=== PATIENT | female | born 1935 | race African-American/Black ===

== ENCOUNTER → 2018-04-01 | Outpatient (CLI) | payer MEDICARE, OTHER | END | disposition home or self-care (01) | LOC: CT 13:22 | DX: K04.99 Other diseases of pulp and periapical tissues (principal); I12.9 Hypertensive chronic kidney disease with stage 1 through stage 4 chronic kidney disease, or unspecified chronic kidney disease; E11.22 Type 2 diabetes mellitus with diabetic chronic kidney disease; N18.3 Chronic kidney disease, stage 3 (moderate); E03.9 Hypothyroidism, unspecified; E78.5 Hyperlipidemia, unspecified; G43.909 Migraine, unspecified, not intractable, without status migrainosus; Z90.49 Acquired absence of other specified parts of digestive tract; Z90.710 Acquired absence of both cervix and uterus; Z68.29 Body mass index [BMI] 29.0-29.9, adult | CPT/HCPCS: 70486 ==

== ENCOUNTER 2018-04-22 12:32 | Emergency (ER) | payer MEDICARE, OTHER ==
[~2018-04-22] VITALS: Ht 167.6 cm; Wt 81.6 kg
[~2018-04-22 12:32] MED LIST: LEVO88TA4 PO; LOSA1TAB19 PO; OMEP40CA5 PO
[2018-04-22 12:50] VITALS: BP 157/74
--- NOTE | 2018-04-22 13:11 | PHYS DOC ---
Past Medical History Past Medical History: Hypertension, Migraines, Other Additional Past Medical Histor: Vertigo Past Surgical History: Cholecystectomy, Hysterectomy Alcohol Use: None Drug Use: None Adult General Chief Complaint Chief Complaint: FINGER INJURY HPI HPI 82 y/o female presents to ER for c/o fall yesterday and woke today with rt middle finger swelling into hand. Patient reports she slipped in the bathtub denies striking her head or having any head, neck, or back pain. Patient reports only injury to be to left middle finger. Patient reports she is right hand dominant. Patient denies any pain at this time. Patient reports she is able to bend left middle finger but due to swelling has slight decrease in range of motion. She reports she remembers falling and denies any LOC. Review of Systems Review of Systems Constitutional: Denies fever or chills [] Eyes: Denies change in visual acuity, redness, or eye pain [] HENT: Denies head pain Respiratory: Denies cough or shortness of breath [] Cardiovascular: Denies CP GI: Denies abdominal pain, nausea, vomiting, bloody stools or diarrhea [] : Denies dysuria or hematuria. Denies incontinence Musculoskeletal: Denies back/neck pain. Reports lt middle finger swelling and decreased ROM- swelling top of hand- denies any pain in lt hand/fingers Integument: Denies abrasion/laceration. Reports swelling lt middle finger/hand Neurologic: Denies headache, focal weakness or sensory changes [] All other systems were reviewed and found to be within normal limits, except as documented in this note. Allergies Allergies Allergies Coded Allergies Type Severity Reaction Last Updated Verified simvastatin Allergy Intermediate 02/20/18 Yes Physical Exam Physical Exam Constitutional: Well developed, well nourished, no acute distress, non-toxic appearance. [] HENT: Normocephalic, atraumatic, bilateral ears normal, oropharynx moist, no oral exudates, nose normal. [] Eyes: 3mm PERRLA, no nystagmus, conjunctiva normal, no discharge. [] Neck: Normal range of motion, no tenderness, supple, no midline cervical tenderness on palp- no deformity Cardiovascular:Heart rate regular rhythm Lungs & Thorax: Resp. equal/nonlabored. No chest wall tenderness Abdomen: soft/nondistended, no tenderness Skin: Warm, dry, no erythema. Back: No tenderness- no midline spinal tenderness on palp. with no c/o pain with ROM, no CVA tenderness. [] Extremities: Pelvis stable and nontender. No tenderness, no cyanosis, no clubbing. Swelling dorsal surface lt hand at base of lt middle finger with swelling extending to distal end of finger- no pain with ROM- ROM is slightly decreased with swelling. Cap refill brisk all fingers lt hand Neurologic: Alert and oriented X 3, normal motor function, normal sensory function, no focal deficits noted. [] Psychologic: Affect normal, judgement normal, mood normal. [] Current Patient Data Vital Signs Vital Signs Date Time Temp Pulse Resp B/P (MAP) Pulse Ox O2 Delivery O2 Flow Rate FiO2 04/22/18 12:50 98.0 81 18 157/74 (101) 96 Room Air 98.0 EKG EKG [] Radiology/Procedures Radiology/Procedures HAND LEFT 3V History: Left middle finger/dorsal surface swelling, injury yesterday Comparison: None. Findings: 3 views of the left hand are submitted. There is subtle fracture involving the distal aspect of the third middle phalanx, no significant displacement. Impression: 1. There is subtle nondisplaced fracture involving the distal aspect of the third middle phalanx. Electronically signed by: Sonal Beavers MD (04/22/2018 1:39 PM) [id number] DICTATED and SIGNED BY: SONAL BEAVERS MD DATE: 04/22/18 1337 Course & Med Decision Making Course & Med Decision Making Pertinent Imaging studies reviewed. (See chart for details) 1400: Discussed xray results with pt with nondisplaced fx distal lt middle finger. On re-exam patient remains neuro and vascular intact in left hand and has had no increase in swelling. Discussed plans for aluminum splint to left middle finger and will provide orthopedic referral information on discharge paperwork. Patient continues to deny any pain in left hand or fingers. Patient instructed to use ibuprofen and/or Tylenol for pain control as needed. Discussed use of ice to affected area every 3-4 hours for 20-30 minutes at a time. Patient provided on signs and symptoms to return to ER for an discharge instructions were discussed. Patient agreeable with discharge plan. Dragon Disclaimer Dragon Disclaimer This electronic medical record was generated, in whole or in part, using a voice recognition dictation system. Departure Departure Impression: Primary Impression: Nondisplaced fracture of phalanx of finger of left hand Disposition: 01 HOME, SELF-CARE Condition: STABLE Referrals: NO PCP (PCP) ANAYELI PHAN MD orthopedic doctor for follow-up Patient Instructions: Finger Fracture Additional Instructions: Wear the aluminum splint to left middle finger- follow up with orthopedic doctor for re-evaluation. Tylenol and/or ibuprofen as needed for pain control. Ice pack every 3-4 hours to left hand for 20-30 minutes at a time for swelling. BETO MAGANA APRN Apr 22, 2018 13:11
--- NOTE | 2018-04-22 13:42 | RAD ---
HAND LEFT 3V History: Left middle finger/dorsal surface swelling, injury yesterday Comparison: None. Findings: 3 views of the left hand are submitted. There is subtle fracture involving the distal aspect of the third middle phalanx, no significant displacement. Impression: 1. There is subtle nondisplaced fracture involving the distal aspect of the third middle phalanx. Electronically signed by: Jono Kulkarni MD (04/22/2018 1:39 PM) [id number]
== END 2018-04-22 14:49 | disposition home or self-care (01) ==
LOC: ER 12:32
DX: S62.653A Nondisplaced fracture of middle phalanx of left middle finger, initial encounter for closed fracture (principal); I10 Essential (primary) hypertension; G43.909 Migraine, unspecified, not intractable, without status migrainosus; Z90.710 Acquired absence of both cervix and uterus; Z90.49 Acquired absence of other specified parts of digestive tract; Z88.8 Allergy status to other drugs, medicaments and biological substances; W01.0XXA Fall on same level from slipping, tripping and stumbling without subsequent striking against object, initial encounter; Y93.89 Activity, other specified; Y92.89 Other specified places as the place of occurrence of the external cause; Y99.8 Other external cause status
CPT/HCPCS: 29130; 73130; 99284

== ENCOUNTER 2020-04-29 21:56 | Inpatient (IN) | payer OTHER ==
[~2020-04-29] VITALS: Ht 172.7 cm; Wt 77.1 kg
[~2020-04-29 21:56] MED LIST changes: +OMEP40CA45 PO; -OMEP40CA5 PO
--- NOTE | 2020-04-29 22:25 | PHYS DOC ---
Past Medical History Past Medical History: Hypertension, Migraines Additional Past Medical Histor: Vertigo Past Surgical History: Cholecystectomy, Hysterectomy Smoking Status: Never Smoker Alcohol Use: None Drug Use: None General Adult EDM: Chief Complaint: DIZZY/LIGHT HEADED HPI: HPI: The history was obtained from the patient. Patient is a 84-year-old female with PMH hypertension, high cholesterol, vertigo who presents with a chief complaint of vertigo. Patient states she had sudden onset dizziness yesterday afternoon around 2 PM. She states approximate hour prior to arrival she developed nausea and vomiting. States that her stress ambulated moves her head the symptoms are worse. She denies any weakness in one extremity compared to the other. She states this has occurred several years ago. She denies any history of stroke. Denies any known history of coronary artery disease or peripheral vascular disease. Does note some ringing in her right ear. Denies taking aspirin daily. Denies any confusion. Denies falls or head trauma. Denies neck pain. Does note a mild headache. Denies fevers. Denies any acute vision changes. No other complaints. Review of Systems: Review of Systems: Constitutional: Denies fever or chills. [] Eyes: Denies change in visual acuity. [] HENT: Denies nasal congestion or sore throat. [] Respiratory: Denies cough or shortness of breath. [] Cardiovascular: Denies chest pain or edema. [] GI: Positive for vomiting : Denies dysuria. [] Musculoskeletal: Denies back pain or joint pain. [] Integument: Denies rash. [] Neurologic: Positive for dizziness Endocrine: Denies polyuria or polydipsia. [] Lymphatic: Denies swollen glands. [] Psychiatric: Denies depression or anxiety. [] Heart Score: Risk Factors: Risk Factors: DM, Current or recent (<one month) smoker, HTN, HLP, family history of CAD, obesity. Risk Scores: Score 0 - 3: 2.5% MACE over next 6 weeks - Discharge Home Score 4 - 6: 20.3% MACE over next 6 weeks - Admit for Clinical Observation Score 7 - 10: 72.7% MACE over next 6 weeks - Early Invasive Strategies Current Medications: Current Medications Medications (Trade) Dose Ordered Sig/Nolan Start Time Stop Time Status Last Admin Dose Admin Meclizine HCl (Antivert) 25 mg 1X ONCE 04/29/20 23:00 04/29/20 23:01 Sodium Chloride 1,000 ml @ 1,000 mls/hr 1X ONCE 04/29/20 22:30 04/29/20 23:29 Allergies: Allergies: Allergies Coded Allergies Type Severity Reaction Last Updated Verified simvastatin Allergy Intermediate 02/20/18 Yes Physical Exam: PE: Constitutional: Well developed, well nourished, no acute distress, non-toxic appearance. [] HENT: Normocephalic, atraumatic, bilateral external ears normal, oropharynx moist, no oral exudates, nose normal. [] Eyes: PERRLA, EOMI, conjunctiva normal, no discharge. [] Neck: Normal range of motion, no tenderness, supple, no stridor. [] Cardiovascular:Heart rate regular rhythm, no murmur [] Lungs & Thorax: Bilateral breath sounds clear to auscultation [] Abdomen: soft, no tenderness, no masses, no pulsatile masses. [] Skin: Warm, dry, no erythema, no rash. [] Back: No tenderness, no CVA tenderness. [] Extremities: No tenderness, no cyanosis, no clubbing, ROM intact, no edema. [] Neurologic: Alert with intact cognitive function. No aphasia, dysarthria, or neglect. GCS 15. Pupils 3 mm briskly reactive b/l. No APD present. Cranial nerves 2-12 grossly intact; no facial asymmetry present, tongue midline, shoulder shrugging strength intact. Strength 5/5 and symmetric throughout. Light touch sensation intact throughout. Cerebellar testing appropriate without evidence of dysdiadochokinesia. DTR's 2+ in all 4 extremities. Negative pronator drift bilaterally. Gait unsteady. Non-fatigable nystagmus to the left. Positive hints exam Psychologic: Affect normal, judgement normal, mood normal. [] Current Patient Data: Labs: Laboratory Tests Test 04/29/20 22:25 04/29/20 22:44 Glucose (Fingerstick) 129 mg/dL White Blood Count 6.9 x10^3/uL Red Blood Count 4.60 x10^6/uL Hemoglobin 14.5 g/dL Hematocrit 42.2 % Mean Corpuscular Volume 92 fL Mean Corpuscular Hemoglobin 32 pg Mean Corpuscular Hemoglobin Concent 34 g/dL Red Cell Distribution Width 13.1 % Platelet Count 211 x10^3/uL Neutrophils (%) (Auto) 87 % Lymphocytes (%) (Auto) 10 % Monocytes (%) (Auto) 3 % Eosinophils (%) (Auto) 0 % Basophils (%) (Auto) 0 % Neutrophils # (Auto) 6.0 x10^3/uL Lymphocytes # (Auto) 0.7 x10^3/uL Monocytes # (Auto) 0.2 x10^3/uL Eosinophils # (Auto) 0.0 x10^3/uL Basophils # (Auto) 0.0 x10^3/uL Segmented Neutrophils % 83 % Lymphocytes % 14 % Monocytes % 3 % Platelet Estimate Adequate Sodium Level 133 mmol/L Potassium Level 3.4 mmol/L Chloride Level 97 mmol/L Carbon Dioxide Level 25 mmol/L Anion Gap 11 Blood Urea Nitrogen 13 mg/dL Creatinine 1.1 mg/dL Estimated GFR (Cockcroft-Gault) 57.4 BUN/Creatinine Ratio 12 Glucose Level 134 mg/dL Calcium Level 10.2 mg/dL Magnesium Level 2.0 mg/dL Total Bilirubin 1.0 mg/dL Aspartate Amino Transf (AST/SGOT) 18 U/L Alanine Aminotransferase (ALT/SGPT) 22 U/L Alkaline Phosphatase 83 U/L Troponin I Quantitative < 0.017 ng/mL Total Protein 8.8 g/dL Albumin 4.4 g/dL Albumin/Globulin Ratio 1.0 Lipase 40 U/L Salicylates Level < 2.8 mg/dL Salicylate Last Dose Date Unk Salicylate Last Dose Time Unk Current Medications Medications (Trade) Dose Ordered Sig/Nolan Route PRN Reason Start Time Stop Time Status Last Admin Dose Admin Sodium Chloride 1,000 ml @ 1,000 mls/hr 1X ONCE IV 04/29/20 22:30 04/29/20 23:29 04/29/20 22:43 Meclizine HCl (Antivert) 25 mg 1X ONCE PO 04/29/20 23:00 04/29/20 23:01 DC 04/29/20 22:42 Vital Signs: Vital Signs Date Time Temp Pulse Resp B/P (MAP) Pulse Ox O2 Delivery O2 Flow Rate FiO2 04/29/20 22:00 97.7 86 18 179/97 (124) 98 Room Air 97.7 Vital Signs Date Time Temp Pulse Resp B/P (MAP) Pulse Ox O2 Delivery O2 Flow Rate FiO2 04/30/20 00:08 82 98 04/29/20 22:00 97.7 18 179/97 (124) Room Air 97.7 EKG: EKG: EKG consistent with normal sinus rhythm. Ventricular rate of 87 bpm. Ranson normal. Inverted T waves noted in lead III. No acute ischemic changes appreciated. [] Radiology/Procedures: Radiology/Procedures: [facility] [address] [place] [address] IMAGING REPORT Signed PATIENT: HARDEEP CAPELLAN ACCOUNT: [id number] : 1935 LOCATION: ER AGE: 84 SEX: F EXAM STATUS: REG ER ORD. PHYSICIAN: CHARLY SORTO DO REASON: dizziness with non fatiguing nystagmus OMNI 300, 60 ML IV PROCEDURE: CT ANGIOGRAPHY HEAD AND NECK INDICATION: Reason: dizziness with non fatiguing nystagmus OMNI 300, 60 ML IV / Spl. Instructions: / History: COMPARISON: CT head same day TECHNIQUE: Axial CT images obtained through the head and neck arterial vasculature with intravenous contrast. 3D images were processed per protocol. Estimates of carotid stenosis based on criteria that correlates with NASCET. One or more of the following individualized dose reduction techniques were utilized for this examination: 1. Automated exposure control; 2. Adjustment of the mA and/or kV according to patient size; 3. Use of iterative reconstruction technique. FINDINGS: Neck Angio: The vertebral arteries are patent. The common carotid arteries and internal carotid arteries are patent. Multifocal plaque throughout the vasculature. This includes at the origin of the right vertebral artery Brain Angio: Proximal anterior cerebral arteries are patent. Proximal posterior cerebral arteries are patent. Proximal middle cerebral arteries are patent. Basilar artery is patent. Multifocal plaque Other Findings: Scattered regions of low density within the white matter. Diffuse prominence of ventricles and sulci which can be seen with age-related volume loss. Degenerative changes the spine with multilevel central canal and neural foraminal stenosis. Enlarged thyroid. Prominent lymph nodes in partially visualized mediastinum. Cystic changes at lung apices. IMPRESSION: * Vertebral, internal and common carotid arteries are patent within the neck. Multifocal plaque is seen. * Proximal middle, anterior and posterior cerebral arteries are patent. If there is high concern for stroke MRI could better assess for a more peripheral region of ischemia that would not be well seen on CT. * Regions of low density within the white matter. Nonspecific but can be from small vessel ischemic disease. Electronically signed by: Lavon Cooper MD (04/30/2020 12:27 AM) [id number] DICTATED and SIGNED BY: LAVON COOPER MD DATE: 04/30/20 0027 [][facility] [address] [place] [address] IMAGING REPORT Signed PATIENT: HARDEEP CAPELLAN ACCOUNT: [id number] : 1935 LOCATION: ER AGE: 84 SEX: F EXAM STATUS: REG ER ORD. PHYSICIAN: CHARLY SORTO DO REASON: dizziness with non fatiguing nystagmus PROCEDURE: CT HEAD WO CONTRAST Exam: CT head INDICATION: Dizziness with nystagmus TECHNIQUE: Sequential axial images through the head were obtained without the administration of IV contrast. Comparisons: None FINDINGS: No focal parenchymal lesion or hemorrhage is identified. There is no midline shift or sulcal effacement. Patchy hypodensity in the periventricular white matter. No acute vascular territory infarction is identified. Andrews-white distinction is preserved. The ventricular system is within normal limits without compression hydrocephalus. The basal cisterns are well maintained. The visualized portions of the paranasal sinuses and mastoid air cells are well-pneumatized. No acute fractures. IMPRESSION: Small vessel ischemic change, technically age indeterminate without prior imaging. Exposure: One or more of the following in the visualized dose reduction techniques were utilized for this examination: 1. Automated exposure control 2. Adjustment of the MA and/or KV according to patient size Use of iterative of reconstructive technique Electronically signed by: Jalil Price MD (04/29/2020 11:14 PM) [id number] DICTATED and SIGNED BY: JALIL PRICE MD DATE: 04/29/20 2314 Course & Med Decision Making: Course & Med Decision Making Pertinent Labs and Imaging studies reviewed. (See chart for details) Patient is a 84-year-old female who presents with chief complaint of acute onset vertiginous symptoms with vomiting. No focal neurologic deficits appreciated on initial examination however the patient does have non-fatigable nystagmus to the left. Given her symptoms began over 24 hours ago and she is not a candidate for large vessel clot retrieval stroke alert was not called. Furthermore she is outside the TPA window. However CT noncontrast as well as CT Paz of the head neck was obtained for potential of posterior involvement. These were grossly unremarkable. Labs been grossly unremarkable. Her symptoms were treated with meclizine and Zofran. She still remains some what symptomatic especially with movement and is unable to ambulate. Although this may be peripheral in nature I do feel the patient would benefit from hospitalization and further work-up given her abnormal nystagmus findings and potential for posterior involvement. Patient agreeable to hospitalization. Osman Disclaimer: Osman Disclaimer: This electronic medical record was generated, in whole or in part, using a voice recognition dictation system. Departure Departure Impression: Primary Impression: Vertigo Additional Impressions: Nausea & vomiting Qualified Codes: R11.2 - Nausea with vomiting, unspecified Non fatigable positional nystagmus Disposition: ADMITTED INPATIENT Condition: STABLE Referrals: Beth KELLER MD (PCP) Justicifation of Admission Dx: Justifications for Admission: Justification of Admission Dx: Yes Comments: intractable vertigo, non fatigable nystagmus, N/V. CVA r/o CHARLY SORTO DO Apr 29, 2020 22:25
[2020-04-29] MEDS ORDERED: IV NORMAL SALINE 1000ML BAG 1,000 ML IV ONE (22:30)
[2020-04-29] MEDS ORDERED: MECLIZINE HCL 12.5 MG TABLET. PO ONE (23:00)
[2020-04-29 23:08] LABS: SALIC < 2.8 mg/dL (2.8-20.0)
[2020-04-29 23:09] LABS: CALCIUM 10.2 mg/dL (8.5-10.1); CREATININE 1.1 mg/dL (0.6-1.0); GFR 57.4; POTASSIUM 3.4 mmol/L (3.5-5.1)
[2020-04-29 23:10] LABS: BASO % 0 % (0-3); EOS % 0 % (0-3); HEMATOCRIT 42.2 % (36.0-47.0); HEMOGLOBIN 14.5 g/dL (12.0-15.5); LYMPH # 0.7 x10^3/uL (1.0-4.8); LYMPH % 10 % (24-48); MEAN CORPUSCULAR HEMOGLOBIN 32 pg (25-35); MEAN CORPUSCULAR HGB CONC 34 g/dL (31-37); MEAN CORPUSCULAR VOLUME 92 fL (79-100); MONO # 0.2 x10^3/uL (0.0-1.1); MONO % 3 % (0-9); NEUT % 87 % (31-73); PLATELET COUNT 211 x10^3/uL (140-400); RED CELL DISTRIBUTION WIDTH 13.1 % (11.5-14.5); WHITE BLOOD COUNT 6.9 x10^3/uL (4.0-11.0)
[2020-04-29 23:15] LABS: ALBUMIN 4.4 g/dL (3.4-5.0); TOTAL PROTEIN 8.8 g/dL (6.4-8.2)
--- NOTE | 2020-04-29 23:17 | RAD ---
Exam: CT head INDICATION: Dizziness with nystagmus TECHNIQUE: Sequential axial images through the head were obtained without the administration of IV contrast. Comparisons: None FINDINGS: No focal parenchymal lesion or hemorrhage is identified. There is no midline shift or sulcal effacement. Patchy hypodensity in the periventricular white matter. No acute vascular territory infarction is identified. Andrews-white distinction is preserved. The ventricular system is within normal limits without compression hydrocephalus. The basal cisterns are well maintained. The visualized portions of the paranasal sinuses and mastoid air cells are well-pneumatized. No acute fractures. IMPRESSION: Small vessel ischemic change, technically age indeterminate without prior imaging. Exposure: One or more of the following in the visualized dose reduction techniques were utilized for this examination: 1. Automated exposure control 2. Adjustment of the MA and/or KV according to patient size Use of iterative of reconstructive technique Electronically signed by: Jalil Orozco MD (04/29/2020 11:14 PM) [id number]
[2020-04-29 23:23] LABS: % LYMPHS 14 % (24-48); % MONOS 3 % (0-10); % SEGS 83 % (35-66); PLT ESTIMATE ADEQUATE (ADEQUATE)
[2020-04-29] MEDS ORDERED: IOHEXOL 300 MG/ML 100ML VIAL. IV ONE (23:45)
[2020-04-29] MEDS ORDERED: CONTRAST GIVEN. MC PRN (23:45)
[2020-04-30 00:20] LABS: BILIRUBIN,URINE SMALL (NEG); CLARITY,URINE CLEAR; COLOR,URINE YELLOW; NITRITE,URINE NEGATIVE (NEG); PROTEIN,URINE 100 mg/dL (NEG-TRACE)
--- NOTE | 2020-04-30 00:30 | RAD ---
INDICATION: Reason: dizziness with non fatiguing nystagmus OMNI 300, 60 ML IV / Spl. Instructions: / History: COMPARISON: CT head same day TECHNIQUE: Axial CT images obtained through the head and neck arterial vasculature with intravenous contrast. 3D images were processed per protocol. Estimates of carotid stenosis based on criteria that correlates with NASCET. One or more of the following individualized dose reduction techniques were utilized for this examination: 1. Automated exposure control; 2. Adjustment of the mA and/or kV according to patient size; 3. Use of iterative reconstruction technique. FINDINGS: Neck Angio: The vertebral arteries are patent. The common carotid arteries and internal carotid arteries are patent. Multifocal plaque throughout the vasculature. This includes at the origin of the right vertebral artery Brain Angio: Proximal anterior cerebral arteries are patent. Proximal posterior cerebral arteries are patent. Proximal middle cerebral arteries are patent. Basilar artery is patent. Multifocal plaque Other Findings: Scattered regions of low density within the white matter. Diffuse prominence of ventricles and sulci which can be seen with age-related volume loss. Degenerative changes the spine with multilevel central canal and neural foraminal stenosis. Enlarged thyroid. Prominent lymph nodes in partially visualized mediastinum. Cystic changes at lung apices. IMPRESSION: * Vertebral, internal and common carotid arteries are patent within the neck. Multifocal plaque is seen. * Proximal middle, anterior and posterior cerebral arteries are patent. If there is high concern for stroke MRI could better assess for a more peripheral region of ischemia that would not be well seen on CT. * Regions of low density within the white matter. Nonspecific but can be from small vessel ischemic disease. Electronically signed by: Donn Escobedo MD (04/30/2020 12:27 AM) [id number]
[2020-04-30 00:40] LABS: SQUAMOUS EPITHELIAL CELL,UR MOD /LPF
[2020-04-30 00:41] LABS: AMORPHOUS SEDIMENT,UR PRESENT /HPF; BACTERIA,URINE FEW /HPF (0-FEW); HYALINE CASTS, URINE FEW /HPF; RBC,URINE RARE /HPF (0-2)
[2020-04-30 00:42] LABS: GRANULAR CASTS,URINE OCCASIONAL /HPF
[2020-04-30] MEDS ORDERED: ONDANSETRON PF 4 MG/2 ML VIAL. IV PRN ×2 (01:00→08:15)
--- NOTE | 2020-04-30 07:35 | PDOC1 ---
History and Physical Date of Admission Date of Admission DATE: 04/30/20 TIME: 07:34 Identification/Chief Complaint Chief Complaint Nystagmus, dizziness Source Source: Patient History of Present Illness History of Present Illness Ms Navarrete is a 84-year-old female with PMH hypertension, high cholesterol, vertigo who presents to the ED with a chief complaint of vertigo. Patient states she had sudden onset dizziness 04/29/2020 in the afternoon around 2 PM. She states the hour prior to arrival she developed nausea and vomiting, was unable to hold down any food at home or in the ED. States that her stress ambulated moves her head the symptoms are worse. She denies any weakness in one extremity compared to the other. She states this has occurred several years ago. She denies any history of stroke. Denies any known history of coronary artery disease or peripheral vascular disease. Does note tinnitus. Denies taking aspirin daily. Denies any confusion. Denies falls or head trauma. Denies neck pain. Does note a moderate headache, not the worst of her life, worse on the right side behind her eye. Denies fevers. Denies any acute vision changes, but does note photophobia. No recent sick contacts. Na 133, K 3.4, Cr 1.1, Ca 10.2. EKG appears NSR with rate of 87 bpm. Inverted T waves noted in lead III. No acute ischemic changes appreciated. CT head and CT angiography negative for acute changes or large vessel occlusive disease. She was unable to tolerate PO in ED, admitted for further treatment. Past Medical History Cardiovascular: HTN Endocrine: Hypothyroidism Past Surgical History Past Surgical History: Cholecystectomy, Hysterectomy Family History Family History: Hypertension Social History Smoke: No ALCOHOL: none Drugs: None Current Problem List Problem List Problems Medical Problems: (1) Non fatigable positional nystagmus Status: Acute Current Medications Current Medications Current Medications Sodium Chloride 1,000 ml @ 1,000 mls/hr 1X ONCE IV Last administered on 04/29/20at 22:43; Start 04/29/20 at 22:30; Stop 04/29/20 at 23:29; Status DC Meclizine HCl (Antivert) 25 mg 1X ONCE PO Last administered on 04/29/20at 22:42; Start 04/29/20 at 23:00; Stop 04/29/20 at 23:01; Status DC Iohexol (Omnipaque 300 Mg/ml) 60 ml 1X ONCE IV Last administered on 04/29/20at 23:46; Start 04/29/20 at 23:45; Stop 04/29/20 at 23:46; Status DC Info (CONTRAST GIVEN -- Rx MONITORING) 1 each PRN DAILY PRN MC SEE COMMENTS; Start 04/29/20 at 23:45; Stop 05/01/20 at 23:44 Ondansetron HCl (Zofran) 4 mg PRN Q8HRS PRN IV NAUSEA/VOMITING 1ST CHOICE; Start 04/30/20 at 01:00; Stop 05/01/20 at 00:59 Active Scripts Active Reported Losartan-Hctz 50-12.5 Mg Tab (Losartan/Hydrochlorothiazide) 1 Each Tablet 1 Tab PO DAILY Omeprazole 40 Mg Capsule.dr 1 Cap PO DAILY Levothyroxine Sodium 88 Mcg Tablet 1 Tab PO DAILY Allergies Allergies: Coded Allergies: simvastatin (Verified Allergy, Intermediate, 02/20/18) ROS General: YES: Fatigue, Malaise; No: Chills, Night Sweats, Appetite, Other PSYCHOLOGICAL ROS: No: Anxiety, Behavioral Disorder, Concentration difficultie, Decreased libido, Depression, Disorientation, Hallucinations, Hostility, Irr itablity, Memory difficulties, Mood Swings, Obsessive thoughts, Physical abuse, Sexual abuse, Sleep disturbances, Suicidal ideation, Other Eyes: Yes Photophobia; No Blurry vision, No Decreased vision, No Double vision, No Dry eyes, No Excessive tearing, No Eye Pain, No Itchy Eyes, No Loss of vision, No Scotomata, No Uses contacts, No Uses glasses, No Other HEENT: YES: Heacaches; No: Visual Changes, Hearing change, Nasal congestion, Nasal discharge, Oral lesions, Sinus pain, Sore Throat, Epistaxis, Sneezing, Snoring, Tinnitus, Vertigo, Vocal changes, Other ALLERGY AND IMMUNOLOGY: No: Hives, Insect Bite Sensitivity, Itchy/Watery Eyes, Nasal Congestion, Post Nasal Drip, Seasonal Allergies, Other Hematological and Lymphatic: No: Bleeding Problems, Blood Clots, Blood Transfusions, Brusing, Night Sweats, Pallor, Swollen Lymph Nodes, Other ENDOCRINE: No: Breast Changes, Galactorrhea, Hair Pattern Changes, Hot Flashes, Malaise/lethargy, Mood Swings, Palpitations, Polydipsia/polyuria, Skin Changes, Temperature Intolerance, Unexpected Weight Changes, Other Breast: No New/Changing Breast Lumps, No Nipple changes, No Nipple discharge, No Other Respiratory: No: Cough, Hemoptysis, Orthopnea, Pleuritic Pain, Shortness of breath, SOB with excertion, Sputum Changes, Stridor, Tachypnea, Wheezing, Other Cardiovascular: No Chest Pain, No Palpitations, No Orthopnea, No Paroxysmal Noc. Dyspnea, No Edema, No Lt Headedness, No Other Gastrointestinal: Yes Nausea, Yes Vomiting; No Abdominal Pain, No Diarrhea, No Constipation, No Melena, No Hematochezia, No Other Genitourinary: No Dysuria, No Frequency, No Incontinence, No Hematuria, No Retention, No Discharge, No Urgency, No Pain, No Flank Pain, No Other, No , No , No , No , No , No , No Musculoskeletal: No Gait Disturbance, No Joint Pain, No Joint Stiffness, No Joint Swelling, No Muscle Pain, No Muscular Weakness, No Pain In:, No Swelling In:, No Other Neurological: Yes Dizziness, Yes Gait Disturbance, Yes Headaches; No Behavorial Changes, No Bowel/Bladder ControlChng, No Confusion, No Impaired Coord/balance, No Memory Loss, No Numbness/Tingling, No Seizures, No Speech Problems, No Tremors, No Visual Changes, No Weakness, No Other Skin: No Dry Skin, No Eczema, No Hair Changes, No Lumps, No Mole Changes, No Mottling, No Nail Changes, No Pruritus, No Rash, No Skin Lesion Changes, No Other, No Acne Physical Exam General: Alert, Oriented X3, Cooperative, moderate distress HEENT: Atraumatic, PERRLA, EOMI, Mucous membr. moist/pink Lungs: Clear to auscultation, Normal air movement Heart: S1S2, RRR, no thrills, no rubs, no gallops, no murmurs Abdomen: Normal bowel sounds, Soft, No tenderness, No hepatosplenomegaly, No masses Rectal Exam: not examined Extremities: No clubbing, No cyanosis, No edema, Normal pulses, No tenderness/swelling Skin: No rashes, No breakdown, No significant lesion Neuro: Normal speech, Strength at 5/5 X4 ext, Normal tone, Sensation intact, Cranial nerves 3-12 NL, Reflexes 2+, Other (gait not tested due to dizziness) Psych/Mental Status: Mental status NL, Mood NL Vitals Vitals Vital Signs Date Time Temp Pulse Resp B/P (MAP) Pulse Ox O2 Delivery O2 Flow Rate FiO2 04/30/20 07:00 68 98 04/29/20 22:00 97.7 18 179/97 (124) Room Air 97.7 Labs Labs Laboratory Tests Test 04/29/20 22:25 04/29/20 22:44 04/30/20 00:09 Glucose (Fingerstick) 129 mg/dL (70-99) White Blood Count 6.9 x10^3/uL (4.0-11.0) Red Blood Count 4.60 x10^6/uL (3.50-5.40) Hemoglobin 14.5 g/dL (12.0-15.5) Hematocrit 42.2 % (36.0-47.0) Mean Corpuscular Volume 92 fL (79-100) Mean Corpuscular Hemoglobin 32 pg (25-35) Mean Corpuscular Hemoglobin Concent 34 g/dL (31-37) Red Cell Distribution Width 13.1 % (11.5-14.5) Platelet Count 211 x10^3/uL (140-400) Neutrophils (%) (Auto) 87 % (31-73) Lymphocytes (%) (Auto) 10 % (24-48) Monocytes (%) (Auto) 3 % (0-9) Eosinophils (%) (Auto) 0 % (0-3) Basophils (%) (Auto) 0 % (0-3) Neutrophils # (Auto) 6.0 x10^3/uL (1.8-7.7) Lymphocytes # (Auto) 0.7 x10^3/uL (1.0-4.8) Monocytes # (Auto) 0.2 x10^3/uL (0.0-1.1) Eosinophils # (Auto) 0.0 x10^3/uL (0.0-0.7) Basophils # (Auto) 0.0 x10^3/uL (0.0-0.2) Segmented Neutrophils % 83 % (35-66) Lymphocytes % 14 % (24-48) Monocytes % 3 % (0-10) Platelet Estimate Adequate (ADEQUATE) Sodium Level 133 mmol/L (136-145) Potassium Level 3.4 mmol/L (3.5-5.1) Chloride Level 97 mmol/L (98-107) Carbon Dioxide Level 25 mmol/L (21-32) Anion Gap 11 (6-14) Blood Urea Nitrogen 13 mg/dL (7-20) Creatinine 1.1 mg/dL (0.6-1.0) Estimated GFR (Cockcroft-Gault) 57.4 BUN/Creatinine Ratio 12 (6-20) Glucose Level 134 mg/dL (70-99) Calcium Level 10.2 mg/dL (8.5-10.1) Magnesium Level 2.0 mg/dL (1.8-2.4) Total Bilirubin 1.0 mg/dL (0.2-1.0) Aspartate Amino Transf (AST/SGOT) 18 U/L (15-37) Alanine Aminotransferase (ALT/SGPT) 22 U/L (14-59) Alkaline Phosphatase 83 U/L (46-116) Troponin I Quantitative < 0.017 ng/mL (0.000-0.055) Total Protein 8.8 g/dL (6.4-8.2) Albumin 4.4 g/dL (3.4-5.0) Albumin/Globulin Ratio 1.0 (1.0-1.7) Lipase 40 U/L (73-393) Salicylates Level < 2.8 mg/dL (2.8-20.0) Salicylate Last Dose Date Unk Salicylate Last Dose Time Unk Urine Collection Type Unknown Urine Color Yellow Urine Clarity Clear Urine pH 6.0 (<5.0-8.0) Urine Specific [place] >=1.030 (1.000-1.030) Urine Protein 100 mg/dL (NEG-TRACE) Urine Glucose (UA) Negative mg/dL (NEG) Urine Ketones (Stick) 40 mg/dL (NEG) Urine Blood Negative (NEG) Urine Nitrite Negative (NEG) Urine Bilirubin Small (NEG) Urine Urobilinogen Dipstick 1.0 mg/dL (0.2 mg/dL) Urine Leukocyte Esterase Negative (NEG) Urine RBC Rare /HPF (0-2) Urine WBC 5-10 /HPF (0-4) Urine Squamous Epithelial Cells Mod /LPF Urine Amorphous Sediment Present /HPF Urine Bacteria Few /HPF (0-FEW) Urine Hyaline Casts Few /HPF Urine Granular Casts Occasional /HPF Urine Mucus Marked /LPF Laboratory Tests Test 04/29/20 22:25 04/29/20 22:44 04/30/20 00:09 Glucose (Fingerstick) 129 mg/dL (70-99) White Blood Count 6.9 x10^3/uL (4.0-11.0) Red Blood Count 4.60 x10^6/uL (3.50-5.40) Hemoglobin 14.5 g/dL (12.0-15.5) Hematocrit 42.2 % (36.0-47.0) Mean Corpuscular Volume 92 fL (79-100) Mean Corpuscular Hemoglobin 32 pg (25-35) Mean Corpuscular Hemoglobin Concent 34 g/dL (31-37) Red Cell Distribution Width 13.1 % (11.5-14.5) Platelet Count 211 x10^3/uL (140-400) Neutrophils (%) (Auto) 87 % (31-73) Lymphocytes (%) (Auto) 10 % (24-48) Monocytes (%) (Auto) 3 % (0-9) Eosinophils (%) (Auto) 0 % (0-3) Basophils (%) (Auto) 0 % (0-3) Neutrophils # (Auto) 6.0 x10^3/uL (1.8-7.7) Lymphocytes # (Auto) 0.7 x10^3/uL (1.0-4.8) Monocytes # (Auto) 0.2 x10^3/uL (0.0-1.1) Eosinophils # (Auto) 0.0 x10^3/uL (0.0-0.7) Basophils # (Auto) 0.0 x10^3/uL (0.0-0.2) Segmented Neutrophils % 83 % (35-66) Lymphocytes % 14 % (24-48) Monocytes % 3 % (0-10) Platelet Estimate Adequate (ADEQUATE) Sodium Level 133 mmol/L (136-145) Potassium Level 3.4 mmol/L (3.5-5.1) Chloride Level 97 mmol/L (98-107) Carbon Dioxide Level 25 mmol/L (21-32) Anion Gap 11 (6-14) Blood Urea Nitrogen 13 mg/dL (7-20) Creatinine 1.1 mg/dL (0.6-1.0) Estimated GFR (Cockcroft-Gault) 57.4 BUN/Creatinine Ratio 12 (6-20) Glucose Level 134 mg/dL (70-99) Calcium Level 10.2 mg/dL (8.5-10.1) Magnesium Level 2.0 mg/dL (1.8-2.4) Total Bilirubin 1.0 mg/dL (0.2-1.0) Aspartate Amino Transf (AST/SGOT) 18 U/L (15-37) Alanine Aminotransferase (ALT/SGPT) 22 U/L (14-59) Alkaline Phosphatase 83 U/L (46-116) Troponin I Quantitative < 0.017 ng/mL (0.000-0.055) Total Protein 8.8 g/dL (6.4-8.2) Albumin 4.4 g/dL (3.4-5.0) Albumin/Globulin Ratio 1.0 (1.0-1.7) Lipase 40 U/L (73-393) Salicylates Level < 2.8 mg/dL (2.8-20.0) Salicylate Last Dose Date Unk Salicylate Last Dose Time Unk Urine Collection Type Unknown Urine Color Yellow Urine Clarity Clear Urine pH 6.0 (<5.0-8.0) Urine Specific [place] >=1.030 (1.000-1.030) Urine Protein 100 mg/dL (NEG-TRACE) Urine Glucose (UA) Negative mg/dL (NEG) Urine Ketones (Stick) 40 mg/dL (NEG) Urine Blood Negative (NEG) Urine Nitrite Negative (NEG) Urine Bilirubin Small (NEG) Urine Urobilinogen Dipstick 1.0 mg/dL (0.2 mg/dL) Urine Leukocyte Esterase Negative (NEG) Urine RBC Rare /HPF (0-2) Urine WBC 5-10 /HPF (0-4) Urine Squamous Epithelial Cells Mod /LPF Urine Amorphous Sediment Present /HPF Urine Bacteria Few /HPF (0-FEW) Urine Hyaline Casts Few /HPF Urine Granular Casts Occasional /HPF Urine Mucus Marked /LPF Images Images CT Angiography head and neck: Neck Angio: The vertebral arteries are patent. The common carotid arteries and internal carotid arteries are patent. Multifocal plaque throughout the vasculature. This includes at the origin of the right vertebral artery Brain Angio: Proximal anterior cerebral arteries are patent. Proximal posterior cerebral arteries are patent. Proximal middle cerebral arteries are patent. Basilar artery is patent. Multifocal plaque Other Findings: Scattered regions of low density within the white matter. Diffuse prominence of ventricles and sulci which can be seen with age-related volume loss. Degenerative changes the spine with multilevel central canal and neural foraminal stenosis. Enlarged thyroid. Prominent lymph nodes in partially visualized mediastinum. Cystic changes at lung apices. IMPRESSION: * Vertebral, internal and common carotid arteries are patent within the neck. Multifocal plaque is seen. * Proximal middle, anterior and posterior cerebral arteries are patent. If there is high concern for stroke MRI could better assess for a more peripheral region of ischemia that would not be well seen on CT. * Regions of low density within the white matter. Nonspecific but can be from small vessel ischemic disease. CT head: No focal parenchymal lesion or hemorrhage is identified. There is no midline shift or sulcal effacement. Patchy hypodensity in the periventricular white matter. No acute vascular territory infarction is identified. Andrews-white distinction is preserved. The ventricular system is within normal limits without compression hydrocephalus. The basal cisterns are well maintained. The visualized portions of the paranasal sinuses and mastoid air cells are well- pneumatized. No acute fractures. IMPRESSION: Small vessel ischemic change, technically age indeterminate without prior imaging. VTE Prophylaxis Ordered VTE Prophylaxis Devices: Yes VTE Pharmacological Prophylaxi: Yes Assessment/Plan Assessment/Plan A/P: Nausea and vomiting - likely related to migraine headache, TN ruling out with negative troponin and EKG Hypokalemia - likely GI losses, will check mag level, replace Hyponatremia - likely from poor PO intake with above symptoms, will give IVF, monitor Headache - likely migraine given her history Vertigo - on maneuvering negative for BPPV, likely related to headache vs vestibular neuronitis or atypical viral infection. Neurology consulted by ED for concern for CVA, CT negative Photophobia - likely migraine symptom, will give IV zofran and attempt PO or IM administration of imitrex HTN - hold HCTZ for electrolyte abnormalities, cont losartan FEN - NSS PPX - ambulatory FULL CODE Dispo -inpatient overnight, will try to advance diet as tolerated Justifications for Admission Other Justification JADYN GRECO MD Apr 30, 2020 07:35
[2020-04-30 09:56] LABS: CHOLESTEROL/HDL RATIO 2.4
--- NOTE | 2020-04-30 12:37 | PDOC2 ---
NEUROLOGY CONSULT Date of Service DOS: DATE: 04/30/20 TIME: 12:31 Reason for Consult Reason for Consult: Dizziness, headache Referring Physician Referring Physician: Dr. Suarez PCP: Dr. Miranda Source Source: Chart review, Patient History of Present Illness History of Present Illness The patient is an 84-year-old right-handed female who has not felt well for a week. She has had chills, warm feeling, headache, and then 2 days ago developed true vertigo. She did have some nystagmus yesterday in the emergency department but feels much better now. She has had migraine headaches in the past. There is no history of stroke, seizure, or head injury. She denies diplopia, dysphagia, dysarthria, focal numbness, or weakness. Again, she is already feeling much better full Past Medical History Cardiovascular: HTN CENTRAL NERVOUS SYSTEM: Migraine Past Surgical History Past Surgical History: Cholecystectomy, Hysterectomy Family History Family History: CVA Social History Social History , lives alone, no alcohol or tobacco Current Medications Current Medications Current Medications Sodium Chloride 1,000 ml @ 1,000 mls/hr 1X ONCE IV Last administered on 04/29/20at 22:43; Start 04/29/20 at 22:30; Stop 04/29/20 at 23:29; Status DC Meclizine HCl (Antivert) 25 mg 1X ONCE PO Last administered on 04/29/20at 22:42; Start 04/29/20 at 23:00; Stop 04/29/20 at 23:01; Status DC Iohexol (Omnipaque 300 Mg/ml) 60 ml 1X ONCE IV Last administered on 04/29/20at 23:46; Start 04/29/20 at 23:45; Stop 04/29/20 at 23:46; Status DC Info (CONTRAST GIVEN -- Rx MONITORING) 1 each PRN DAILY PRN MC SEE COMMENTS; Start 04/29/20 at 23:45; Stop 05/01/20 at 23:44 Ondansetron HCl (Zofran) 4 mg PRN Q8HRS PRN IV NAUSEA/VOMITING 1ST CHOICE; Start 04/30/20 at 01:00; Stop 04/30/20 at 08:13; Status DC Ondansetron HCl (Zofran) 4 mg PRN Q4HRS PRN IV NAUSEA/VOMITING 1ST CHOICE Last administered on 04/30/20at 09:04; Start 04/30/20 at 08:15 Sumatriptan Succinate (Imitrex) 100 mg PRN Q2HR PRN PO MIGRAINE HEADACHE Last administered on 04/30/20at 09:09; Start 04/30/20 at 08:15 Active Scripts Active Reported Losartan-Hctz 50-12.5 Mg Tab (Losartan/Hydrochlorothiazide) 1 Each Tablet 1 Tab PO DAILY Omeprazole 40 Mg Capsule.dr 1 Cap PO DAILY Levothyroxine Sodium 88 Mcg Tablet 1 Tab PO DAILY Allergies Allergies: Coded Allergies: simvastatin (Verified Allergy, Intermediate, 02/20/18) ROS Review of System Negative for fever, chills, weight loss, shortness of breath, chest pain, indigestion, hematochezia, melena, and dysuria. Full 14-point review of systems is negative. Physical Exam Physical Examination General: Well-developed, well-nourished black female in no acute distress HEENT: Normocephalic andatraumatic. Tympanic membranes clear.Temporal arteriespulsatile and nontender. Neck: Supple without bruit, no meningismus Musculoskeletal: Stability:see neurologic. Gait exam:see neurologic. Tone:see neurologic.Strength:see neurologic. Neurological: Mental Status:intact, orientation, memory, attention span/concentration, language, fund of knowledge normal. Cranial Nerves:Pupils equal and reactive to light, extraocular movements areintact, visual guerra are full to confrontation. Facial sensation is normal. There is no facial asymmetry. Vestibulo-ocular reflex is intact. Palate elevates and tongue protrudes in midline. All other cranial related problems are negative except as mentioned before.Reflexes:2+ and symmetric with flexor plantar responses. Motor:5/5 strength with normal tone and bulk. Coordination:Finger-nose finger and [id number] testing are normal. Rapid alternating movements and fine finger movements are intact. Gait:Not tested. Sensory:Normal pinprick, vibration, light touch, proprioception. Vitals VITALS Vital Signs Date Time Temp Pulse Resp B/P (MAP) Pulse Ox O2 Delivery O2 Flow Rate FiO2 04/30/20 09:00 66 04/30/20 07:00 98 04/29/20 22:00 97.7 18 179/97 (124) Room Air 97.7 Labs Labs Laboratory Tests Test 04/29/20 22:25 8/30/20 22:44 04/30/20 00:09 04/30/20 07:20 Glucose (Fingerstick) 129 mg/dL (70-99) White Blood Count 6.9 x10^3/uL (4.0-11.0) Red Blood Count 4.60 x10^6/uL (3.50-5.40) Hemoglobin 14.5 g/dL (12.0-15.5) Hematocrit 42.2 % (36.0-47.0) Mean Corpuscular Volume 92 fL (79-100) Mean Corpuscular Hemoglobin 32 pg (25-35) Mean Corpuscular Hemoglobin Concent 34 g/dL (31-37) Red Cell Distribution Width 13.1 % (11.5-14.5) Platelet Count 211 x10^3/uL (140-400) Neutrophils (%) (Auto) 87 % (31-73) Lymphocytes (%) (Auto) 10 % (24-48) Monocytes (%) (Auto) 3 % (0-9) Eosinophils (%) (Auto) 0 % (0-3) Basophils (%) (Auto) 0 % (0-3) Neutrophils # (Auto) 6.0 x10^3/uL (1.8-7.7) Lymphocytes # (Auto) 0.7 x10^3/uL (1.0-4.8) Monocytes # (Auto) 0.2 x10^3/uL (0.0-1.1) Eosinophils # (Auto) 0.0 x10^3/uL (0.0-0.7) Basophils # (Auto) 0.0 x10^3/uL (0.0-0.2) Segmented Neutrophils % 83 % (35-66) Lymphocytes % 14 % (24-48) Monocytes % 3 % (0-10) Platelet Estimate Adequate (ADEQUATE) Sodium Level 133 mmol/L (136-145) Potassium Level 3.4 mmol/L (3.5-5.1) Chloride Level 97 mmol/L (98-107) Carbon Dioxide Level 25 mmol/L (21-32) Anion Gap 11 (6-14) Blood Urea Nitrogen 13 mg/dL (7-20) Creatinine 1.1 mg/dL (0.6-1.0) Estimated GFR (Cockcroft-Gault) 57.4 BUN/Creatinine Ratio 12 (6-20) Glucose Level 134 mg/dL (70-99) Calcium Level 10.2 mg/dL (8.5-10.1) Magnesium Level 2.0 mg/dL (1.8-2.4) 2.0 mg/dL (1.8-2.4) Total Bilirubin 1.0 mg/dL (0.2-1.0) Aspartate Amino Transf (AST/SGOT) 18 U/L (15-37) Alanine Aminotransferase (ALT/SGPT) 22 U/L (14-59) Alkaline Phosphatase 83 U/L (46-116) Troponin I Quantitative < 0.017 ng/mL (0.000-0.055) < 0.017 ng/mL (0.000-0.055) Total Protein 8.8 g/dL (6.4-8.2) Albumin 4.4 g/dL (3.4-5.0) Albumin/Globulin Ratio 1.0 (1.0-1.7) Lipase 40 U/L (73-393) Salicylates Level < 2.8 mg/dL (2.8-20.0) Salicylate Last Dose Date Unk Salicylate Last Dose Time Unk Urine Collection Type Unknown Urine Color Yellow Urine Clarity Clear Urine pH 6.0 (<5.0-8.0) Urine Specific [place] >=1.030 (1.000-1.030) Urine Protein 100 mg/dL (NEG-TRACE) Urine Glucose (UA) Negative mg/dL (NEG) Urine Ketones (Stick) 40 mg/dL (NEG) Urine Blood Negative (NEG) Urine Nitrite Negative (NEG) Urine Bilirubin Small (NEG) Urine Urobilinogen Dipstick 1.0 mg/dL (0.2 mg/dL) Urine Leukocyte Esterase Negative (NEG) Urine RBC Rare /HPF (0-2) Urine WBC 5-10 /HPF (0-4) Urine Squamous Epithelial Cells Mod /LPF Urine Amorphous Sediment Present /HPF Urine Bacteria Few /HPF (0-FEW) Urine Hyaline Casts Few /HPF Urine Granular Casts Occasional /HPF Urine Mucus Marked /LPF Triglycerides Level 61 mg/dL (0-150) Cholesterol Level 160 mg/dL (0-200) LDL Cholesterol, Calculated 82 mg/dL (0-100) VLDL Cholesterol, Calculated 12 mg/dL (0-40) Non-HDL Cholesterol Calculated 94 mg/dL (0-129) HDL Cholesterol 66 mg/dL (40-60) Cholesterol/HDL Ratio 2.4 Laboratory Tests Test 04/29/20 22:25 04/29/20 22:44 04/30/20 00:09 04/30/20 07:20 Glucose (Fingerstick) 129 mg/dL (70-99) White Blood Count 6.9 x10^3/uL (4.0-11.0) Red Blood Count 4.60 x10^6/uL (3.50-5.40) Hemoglobin 14.5 g/dL (12.0-15.5) Hematocrit 42.2 % (36.0-47.0) Mean Corpuscular Volume 92 fL (79-100) Mean Corpuscular Hemoglobin 32 pg (25-35) Mean Corpuscular Hemoglobin Concent 34 g/dL (31-37) Red Cell Distribution Width 13.1 % (11.5-14.5) Platelet Count 211 x10^3/uL (140-400) Neutrophils (%) (Auto) 87 % (31-73) Lymphocytes (%) (Auto) 10 % (24-48) Monocytes (%) (Auto) 3 % (0-9) Eosinophils (%) (Auto) 0 % (0-3) Basophils (%) (Auto) 0 % (0-3) Neutrophils # (Auto) 6.0 x10^3/uL (1.8-7.7) Lymphocytes # (Auto) 0.7 x10^3/uL (1.0-4.8) Monocytes # (Auto) 0.2 x10^3/uL (0.0-1.1) Eosinophils # (Auto) 0.0 x10^3/uL (0.0-0.7) Basophils # (Auto) 0.0 x10^3/uL (0.0-0.2) Segmented Neutrophils % 83 % (35-66) Lymphocytes % 14 % (24-48) Monocytes % 3 % (0-10) Platelet Estimate Adequate (ADEQUATE) Sodium Level 133 mmol/L (136-145) Potassium Level 3.4 mmol/L (3.5-5.1) Chloride Level 97 mmol/L (98-107) Carbon Dioxide Level 25 mmol/L (21-32) Anion Gap 11 (6-14) Blood Urea Nitrogen 13 mg/dL (7-20) Creatinine 1.1 mg/dL (0.6-1.0) Estimated GFR (Cockcroft-Gault) 57.4 BUN/Creatinine Ratio 12 (6-20) Glucose Level 134 mg/dL (70-99) Calcium Level 10.2 mg/dL (8.5-10.1) Magnesium Level 2.0 mg/dL (1.8-2.4) 2.0 mg/dL (1.8-2.4) Total Bilirubin 1.0 mg/dL (0.2-1.0) Aspartate Amino Transf (AST/SGOT) 18 U/L (15-37) Alanine Aminotransferase (ALT/SGPT) 22 U/L (14-59) Alkaline Phosphatase 83 U/L (46-116) Troponin I Quantitative < 0.017 ng/mL (0.000-0.055) < 0.017 ng/mL (0.000-0.055) Total Protein 8.8 g/dL (6.4-8.2) Albumin 4.4 g/dL (3.4-5.0) Albumin/Globulin Ratio 1.0 (1.0-1.7) Lipase 40 U/L (73-393) Salicylates Level < 2.8 mg/dL (2.8-20.0) Salicylate Last Dose Date Unk Salicylate Last Dose Time Unk Urine Collection Type Unknown Urine Color Yellow Urine Clarity Clear Urine pH 6.0 (<5.0-8.0) Urine Specific [place] >=1.030 (1.000-1.030) Urine Protein 100 mg/dL (NEG-TRACE) Urine Glucose (UA) Negative mg/dL (NEG) Urine Ketones (Stick) 40 mg/dL (NEG) Urine Blood Negative (NEG) Urine Nitrite Negative (NEG) Urine Bilirubin Small (NEG) Urine Urobilinogen Dipstick 1.0 mg/dL (0.2 mg/dL) Urine Leukocyte Esterase Negative (NEG) Urine RBC Rare /HPF (0-2) Urine WBC 5-10 /HPF (0-4) Urine Squamous Epithelial Cells Mod /LPF Urine Amorphous Sediment Present /HPF Urine Bacteria Few /HPF (0-FEW) Urine Hyaline Casts Few /HPF Urine Granular Casts Occasional /HPF Urine Mucus Marked /LPF Triglycerides Level 61 mg/dL (0-150) Cholesterol Level 160 mg/dL (0-200) LDL Cholesterol, Calculated 82 mg/dL (0-100) VLDL Cholesterol, Calculated 12 mg/dL (0-40) Non-HDL Cholesterol Calculated 94 mg/dL (0-129) HDL Cholesterol 66 mg/dL (40-60) Cholesterol/HDL Ratio 2.[address] head INDICATION: Dizziness with nystagmus TECHNIQUE: Sequential axial images through the head were obtained without the administration of IV contrast. Comparisons: None FINDINGS: No focal parenchymal lesion or hemorrhage is identified. There is no midline shift or sulcal effacement. Patchy hypodensity in the periventricular white matter. No acute vascular territory infarction is identified. Andrews-white distinction is preserved. The ventricular system is within normal limits without compression hydrocephalus. The basal cisterns are well maintained. The visualized portions of the paranasal sinuses and mastoid air cells are well-pneumatized. No acute fractures. IMPRESSION: Small vessel ischemic change, technically age indeterminate without prior imaging. CT ANGIOGRAPHY HEAD AND NECK INDICATION: Reason: dizziness with non fatiguing nystagmus OMNI 300, 60 ML IV / Spl. Instructions: / History: COMPARISON: CT head same day TECHNIQUE: Axial CT images obtained through the head and neck arterial vasculature with intravenous contrast. 3D images were processed per protocol. Estimates of carotid stenosis based on criteria that correlates with NASCET. One or more of the following individualized dose reduction techniques were utilized for this examination: 1. Automated exposure control; 2. Adjustment of the mA and/or kV according to patient size; 3. Use of iterative reconstruction technique. FINDINGS: Neck Angio: The vertebral arteries are patent. The common carotid arteries and internal carotid arteries are patent. Multifocal plaque throughout the vasculature. This includes at the origin of the right vertebral artery Brain Angio: Proximal anterior cerebral arteries are patent. Proximal posterior cerebral arteries are patent. Proximal middle cerebral arteries are patent. Basilar artery is patent. Multifocal plaque Other Findings: Scattered regions of low density within the white matter. Diffuse prominence of ventricles and sulci which can be seen with age-related volume loss. Degenerative changes the spine with multilevel central canal and neural foraminal stenosis. Enlarged thyroid. Prominent lymph nodes in partially visualized mediastinum. Cystic changes at lung apices. IMPRESSION: * Vertebral, internal and common carotid arteries are patent within the neck. Multifocal plaque is seen. * Proximal middle, anterior and posterior cerebral arteries are patent. If there is high concern for stroke MRI could better assess for a more peripheral region of ischemia that would not be well seen on CT. * Regions of low density within the white matter. Nonspecific but can be from small vessel ischemic disease. Assessment/Plan Assessment/Plan Impression: History of migraine headaches, toxic headache, possible viral infection Vertigo, resolved, may have had some vestibular neuronitis No evidence of stroke, encephalitis, or other acute neurological issue. Recommendations: Supportive care, IV fluids, ondansetron, meclizine, and she also received a dose of sumatriptan Hold on brain MRI Observe at least 1 night. Thank you for letting me help with the patient's care. VIKRAM BLANKENSHIP MD Apr 30, 2020 12:36
--- NOTE | 2020-04-30 17:02 | EKG ---
[facility] [address] [place] [address] Test Date: 2020-04-29 Test Time: 22:08:41 Pat Name: HARDEEP CAPELLAN Department: Room: Gender: F Facing Baster Jumpbasting: : 1935 Requested By: CHARLY SORTO Order Number: [id number] Reading MD: Measurements Intervals [place] Rate: 87 P: -48 TX: 130 QRS: 24 QRSD: 78 T: -13 QT: 366 QTc: 441 Interpretive Statements SINUS RHYTHM T ABNORMALITY IN INFERIOR LEADS ABNORMAL ECG RI6.02 No previous ECG available for comparison
[2020-04-30 19:00] VITALS: BP 139/66
[2020-04-30] MEDS ORDERED: POTASSIUM CHLORIDE 20 MEQ TABLET.ER. PO ONE (21:30)
[2020-04-30 22:50] VITALS: BP 152/62
[2020-05-01 03:00] VITALS: BP 149/73
[2020-05-01 03:08] LABS: HEMOGLOBIN A1C 5.1 % (4.8-5.6)
[2020-05-01 05:23] LABS: BASO % 1 % (0-3); EOS # 0.1 x10^3/uL (0.0-0.7); EOS % 2 % (0-3); HEMATOCRIT 36.6 % (36.0-47.0); HEMOGLOBIN 12.5 g/dL (12.0-15.5); LYMPH % 36 % (24-48); MEAN CORPUSCULAR HEMOGLOBIN 31 pg (25-35); MEAN CORPUSCULAR HGB CONC 34 g/dL (31-37); MEAN CORPUSCULAR VOLUME 92 fL (79-100); MONO # 0.4 x10^3/uL (0.0-1.1); MONO % 8 % (0-9); NEUT # 2.9 x10^3/uL (1.8-7.7); NEUT % 54 % (31-73); PLATELET COUNT 194 x10^3/uL (140-400); RED BLOOD COUNT 3.97 x10^6/uL (3.50-5.40); RED CELL DISTRIBUTION WIDTH 13.3 % (11.5-14.5); WHITE BLOOD COUNT 5.5 x10^3/uL (4.0-11.0)
[2020-05-01 05:43] LABS: CALCIUM 9.1 mg/dL (8.5-10.1); GFR 64.1; POTASSIUM 4.3 mmol/L (3.5-5.1)
[2020-05-01] MEDS: LEVOTHYROXINE 88 MCG TABLET PO SCH (06:20)
[2020-05-01 07:44] VITALS: BP 145/64
--- NOTE | 2020-05-01 08:20 | PDOC ---
[facility] PROGRESS NOTE Date of Service DOS: DATE: 05/01/20 TIME: 08:19 Chief Complaint Chief Complaint A/P: Nausea and vomiting - likely related to migraine headache, IN ruling out with negative troponin and EKG Hypokalemia - likely GI losses, Replaced Hyponatremia - likely from poor PO intake with above symptoms, Improved with IVF and holding HCTZ Headache - likely migraine given her history Left nystagmus - with rapid saccadic movement, likely vestibular neuronitis, d/w neurology MRI is indicated prior to further care. Vertigo - on maneuvering negative for BPPV, likely related to headache vs vestibular neuronitis or atypical viral infection. Neurology consulted by ED for concern for CVA, CT negative Photophobia - likely migraine symptom, will give IV zofran and attempt PO or IM administration of imitrex HTN - hold HCTZ for electrolyte abnormalities, cont losartan Gait instability - will need assistance on discharge FEN - ADAT PPX - ambulatory FULL CODE Dispo -inpatient overnight, will try to advance diet as tolerated History of Present Illness History of Present Illness Ms Navarrete is a 84-year-old female with PMH hypertension, high cholesterol, vertigo who presents to the ED with a chief complaint of vertigo. Patient states she had sudden onset dizziness 04/29/2020 in the afternoon around 2 PM. She states the hour prior to arrival she developed nausea and vomiting, was unable to hold down any food at home or in the ED. States that her stress ambulated moves her head the symptoms are worse. She denies any weakness in one extremity compared to the other. She states this has occurred several years ago. She denies any history of stroke. Denies any known history of coronary artery disease or peripheral vascular disease. Does note tinnitus. Denies taking aspirin daily. Denies any confusion. Denies falls or head trauma. Denies neck pain. Does note a moderate headache, not the worst of her life, worse on the right side behind her eye. Denies fevers. Denies any acute vision changes, but does note photophobia. No recent sick contacts. Na 133, K 3.4, Cr 1.1, Ca 10.2. EKG appears NSR with rate of 87 bpm. Inverted T waves noted in lead III. No acute ischemic changes appreciated. CT head and CT angiography negative for acute changes or large vessel occlusive disease. She was unable to tolerate PO in ED, admitted for further treatment. Nausea and headache improved today. Still with left nystagmus. Dizziness is still present while working with PT. Plan for MRI today, will likely need home health on discharge. Vitals/I&O Vitals/I&O: Vital Signs Date Time Temp Pulse Resp B/P (MAP) Pulse Ox O2 Delivery O2 Flow Rate FiO2 05/01/20 07:44 98.3 67 18 145/64 (91) 95 Room Air 98.3 I & O 04/30/20 04/30/20 05/01/20 15:00 23:00 07:00 Intake Total 150 ml Output Total 0 ml 0 ml Balance 0 ml 150 ml Physical Exam General: Alert, Oriented X3, Cooperative, moderate distress Lungs: Clear Abdomen: Normal bowel sounds, Soft, No tenderness, No hepatosplenomegaly, No masses Extremities: No clubbing, No cyanosis, No edema, Normal pulses, No tenderness/swelling Skin: No rashes, No breakdown, No significant lesion Labs Labs: Laboratory Tests Test 05/01/20 04:32 White Blood Count 5.5 x10^3/uL (4.0-11.0) Red Blood Count 3.97 x10^6/uL (3.50-5.40) Hemoglobin 12.5 g/dL (12.0-15.5) Hematocrit 36.6 % (36.0-47.0) Mean Corpuscular Volume 92 fL (79-100) Mean Corpuscular Hemoglobin 31 pg (25-35) Mean Corpuscular Hemoglobin Concent 34 g/dL (31-37) Red Cell Distribution Width 13.3 % (11.5-14.5) Platelet Count 194 x10^3/uL (140-400) Neutrophils (%) (Auto) 54 % (31-73) Lymphocytes (%) (Auto) 36 % (24-48) Monocytes (%) (Auto) 8 % (0-9) Eosinophils (%) (Auto) 2 % (0-3) Basophils (%) (Auto) 1 % (0-3) Neutrophils # (Auto) 2.9 x10^3/uL (1.8-7.7) Lymphocytes # (Auto) 2.0 x10^3/uL (1.0-4.8) Monocytes # (Auto) 0.4 x10^3/uL (0.0-1.1) Eosinophils # (Auto) 0.1 x10^3/uL (0.0-0.7) Basophils # (Auto) 0.0 x10^3/uL (0.0-0.2) Sodium Level 136 mmol/L (136-145) Potassium Level 4.3 mmol/L (3.5-5.1) Chloride Level 104 mmol/L (98-107) Carbon Dioxide Level 25 mmol/L (21-32) Anion Gap 7 (6-14) Blood Urea Nitrogen 16 mg/dL (7-20) Creatinine 1.0 mg/dL (0.6-1.0) Estimated GFR (Cockcroft-Gault) 64.1 Glucose Level 86 mg/dL (70-99) Calcium Level 9.1 mg/dL (8.5-10.1) Assessment and Plan Assessmemt and Plan Problems Medical Problems: (1) Non fatigable positional nystagmus Status: Acute Comment Review of Relevant I have reviewed the following items bam (where applicable) has been applied. Medications: Current Medications Medications (Trade) Dose Ordered Sig/Nolan Route PRN Reason Start Time Stop Time Status Last Admin Dose Admin Levothyroxine Sodium (Synthroid) 88 mcg DAILY06 PO 05/01/20 06:00 05/01/20 06:20 Potassium Chloride (Klor-Con) 40 meq 1X ONCE PO 04/30/20 21:30 04/30/20 21:31 DC 04/30/20 21:30 Justifications for Admission Other Justification JADYN GRECO MD May 01, 2020 08:20
[2020-05-01] MEDS ORDERED: hydroCHLOROthiazide 12.5 MG CAPSULE PO SCH (09:00)
[2020-05-01] MEDS: LOSARTAN POTASSIUM 50 MG TABLET. PO SCH (09:04)
[2020-05-01] MEDS: PANTOPRAZOLE 40 MG TABLET.DR. PO SCH (09:04)
--- NOTE | 2020-05-01 10:12 | NUR ---
SW following. Discussed with RN, pt from home, cardiac diet, room air. PT/OT ordered. Dr. Suarez anticipates discharge home today. ALO will continue to follow.
[2020-05-01 11:29] VITALS: BP 153/76
--- NOTE | 2020-05-01 11:58 | RAD ---
MRI Brain without contrast History:Persistent vertigo Technique: Multiplanar, multisequential noncontrast MR imaging was performed of the brain. Comparison: None Findings: There is mild motion. There is no convincing evidence of recent infarct or cytotoxic edema. Ventricular size is proportionate to the sulcal spaces. There is [id number] supratentorial atrophy somewhat greater of the parietal lobes.There is no significant midline shift, intraaxial mass effect, or focal abnormal extra-axial fluid collection. There is scattered [id number] T2 and FLAIR hyperintense signal abnormality of the supratentorial parenchyma bilaterally greatest of the periatrial white matter. There is preservation of the major intracranial flow-voids at the skull base. The cerebellar tonsils are normal in location. There is no significant abnormality of the pineal gland or pituitary gland. There is mild to moderate ethmoid air cell mucosal thickening, very minimally of the frontal sinus and left maxillary sinus. There is minimal thickening of the mastoid air cells bilaterally.There is preserved marrow signal of the clivus. There is C3-4 degenerative disc disease. Impression: 1. There is no convincing evidence of recent infarct or intracranial mass effect. There is [id number] supratentorial atrophy somewhat greater of the parietal lobes. Scattered mild to moderate T2 and FLAIR hyperintense signal supratentorial parenchyma is nonspecific although more commonly due to chronic microvascular ischemic disease patient's age. Electronically signed by: Jono Kulkarni MD (05/01/2020 11:55 AM) [place] [id number]
--- NOTE | 2020-05-01 12:24 | PDOC ---
PROGRESS NOTES Date of Service DATE: 05/01/20 TIME: 12:22 Assessment Problems Medical Problems: (1) Non fatigable positional nystagmus Status: Acute History of migraine headaches, toxic headache, possible viral infection Vertigo, resolved, may have had some vestibular neuronitis. Still off balance walking. Plan Supportive care, IV fluids, ondansetron, meclizine, and she also received a dose of sumatriptan Because of persistent disequilibrium, brain MRI Subjective Still feels dizzy Objective Vital Signs Date Time Temp Pulse Resp B/P (MAP) Pulse Ox O2 Delivery O2 Flow Rate FiO2 05/01/20 11:29 98.5 71 18 153/76 (101) 97 Room Air 98.5 Intake and Output 05/01/20 07:00 Intake Total 150 ml Output Total 0 ml Balance 150 ml Intake Oral 150 ml Output Urine Total 0 ml PHYSICAL EXAM Alert. Oriented to time, place and person. PERRL. EOMI. CN: no focal findings. Muscle tone: normal. Muscle strength: 5/5 DTR: 2+ Plantar reflex: flexor Gait: Unsteady Sensory exam: no abnormal findings. No cerebellar signs elicited. Review of Relevant I have reviewed the following items bam (where applicable) has been applied. Labs Laboratory Tests Test 04/29/20 22:25 04/29/20 22:44 04/30/20 00:09 04/30/20 07:20 Glucose (Fingerstick) 129 mg/dL (70-99) White Blood Count 6.9 x10^3/uL (4.0-11.0) Red Blood Count 4.60 x10^6/uL (3.50-5.40) Hemoglobin 14.5 g/dL (12.0-15.5) Hematocrit 42.2 % (36.0-47.0) Mean Corpuscular Volume 92 fL (79-100) Mean Corpuscular Hemoglobin 32 pg (25-35) Mean Corpuscular Hemoglobin Concent 34 g/dL (31-37) Red Cell Distribution Width 13.1 % (11.5-14.5) Platelet Count 211 x10^3/uL (140-400) Neutrophils (%) (Auto) 87 % (31-73) Lymphocytes (%) (Auto) 10 % (24-48) Monocytes (%) (Auto) 3 % (0-9) Eosinophils (%) (Auto) 0 % (0-3) Basophils (%) (Auto) 0 % (0-3) Neutrophils # (Auto) 6.0 x10^3/uL (1.8-7.7) Lymphocytes # (Auto) 0.7 x10^3/uL (1.0-4.8) Monocytes # (Auto) 0.2 x10^3/uL (0.0-1.1) Eosinophils # (Auto) 0.0 x10^3/uL (0.0-0.7) Basophils # (Auto) 0.0 x10^3/uL (0.0-0.2) Segmented Neutrophils % 83 % (35-66) Lymphocytes % 14 % (24-48) Monocytes % 3 % (0-10) Platelet Estimate Adequate (ADEQUATE) Sodium Level 133 mmol/L (136-145) Potassium Level 3.4 mmol/L (3.5-5.1) Chloride Level 97 mmol/L (98-107) Carbon Dioxide Level 25 mmol/L (21-32) Anion Gap 11 (6-14) Blood Urea Nitrogen 13 mg/dL (7-20) Creatinine 1.1 mg/dL (0.6-1.0) Estimated GFR (Cockcroft-Gault) 57.4 BUN/Creatinine Ratio 12 (6-20) Glucose Level 134 mg/dL (70-99) Calcium Level 10.2 mg/dL (8.5-10.1) Magnesium Level 2.0 mg/dL (1.8-2.4) 2.0 mg/dL (1.8-2.4) Total Bilirubin 1.0 mg/dL (0.2-1.0) Aspartate Amino Transf (AST/SGOT) 18 U/L (15-37) Alanine Aminotransferase (ALT/SGPT) 22 U/L (14-59) Alkaline Phosphatase 83 U/L (46-116) Troponin I Quantitative < 0.017 ng/mL (0.000-0.055) < 0.017 ng/mL (0.000-0.055) Total Protein 8.8 g/dL (6.4-8.2) Albumin 4.4 g/dL (3.4-5.0) Albumin/Globulin Ratio 1.0 (1.0-1.7) Lipase 40 U/L (73-393) Salicylates Level < 2.8 mg/dL (2.8-20.0) Salicylate Last Dose Date Unk Salicylate Last Dose Time Unk Urine Collection Type Unknown Urine Color Yellow Urine Clarity Clear Urine pH 6.0 (<5.0-8.0) Urine Specific [place] >=1.030 (1.000-1.030) Urine Protein 100 mg/dL (NEG-TRACE) Urine Glucose (UA) Negative mg/dL (NEG) Urine Ketones (Stick) 40 mg/dL (NEG) Urine Blood Negative (NEG) Urine Nitrite Negative (NEG) Urine Bilirubin Small (NEG) Urine Urobilinogen Dipstick 1.0 mg/dL (0.2 mg/dL) Urine Leukocyte Esterase Negative (NEG) Urine RBC Rare /HPF (0-2) Urine WBC 5-10 /HPF (0-4) Urine Squamous Epithelial Cells Mod /LPF Urine Amorphous Sediment Present /HPF Urine Bacteria Few /HPF (0-FEW) Urine Hyaline Casts Few /HPF Urine Granular Casts Occasional /HPF Urine Mucus Marked /LPF Hemoglobin A1c 5.1 % (4.8-5.6) Triglycerides Level 61 mg/dL (0-150) Cholesterol Level 160 mg/dL (0-200) LDL Cholesterol, Calculated 82 mg/dL (0-100) VLDL Cholesterol, Calculated 12 mg/dL (0-40) Non-HDL Cholesterol Calculated 94 mg/dL (0-129) HDL Cholesterol 66 mg/dL (40-60) Cholesterol/HDL Ratio 2.4 Test 05/01/20 04:32 White Blood Count 5.5 x10^3/uL (4.0-11.0) Red Blood Count 3.97 x10^6/uL (3.50-5.40) Hemoglobin 12.5 g/dL (12.0-15.5) Hematocrit 36.6 % (36.0-47.0) Mean Corpuscular Volume 92 fL (79-100) Mean Corpuscular Hemoglobin 31 pg (25-35) Mean Corpuscular Hemoglobin Concent 34 g/dL (31-37) Red Cell Distribution Width 13.3 % (11.5-14.5) Platelet Count 194 x10^3/uL (140-400) Neutrophils (%) (Auto) 54 % (31-73) Lymphocytes (%) (Auto) 36 % (24-48) Monocytes (%) (Auto) 8 % (0-9) Eosinophils (%) (Auto) 2 % (0-3) Basophils (%) (Auto) 1 % (0-3) Neutrophils # (Auto) 2.9 x10^3/uL (1.8-7.7) Lymphocytes # (Auto) 2.0 x10^3/uL (1.0-4.8) Monocytes # (Auto) 0.4 x10^3/uL (0.0-1.1) Eosinophils # (Auto) 0.1 x10^3/uL (0.0-0.7) Basophils # (Auto) 0.0 x10^3/uL (0.0-0.2) Sodium Level 136 mmol/L (136-145) Potassium Level 4.3 mmol/L (3.5-5.1) Chloride Level 104 mmol/L (98-107) Carbon Dioxide Level 25 mmol/L (21-32) Anion Gap 7 (6-14) Blood Urea Nitrogen 16 mg/dL (7-20) Creatinine 1.0 mg/dL (0.6-1.0) Estimated GFR (Cockcroft-Gault) 64.1 Glucose Level 86 mg/dL (70-99) Calcium Level 9.1 mg/dL (8.5-10.1) Laboratory Tests Test 05/01/20 04:32 White Blood Count 5.5 x10^3/uL (4.0-11.0) Red Blood Count 3.97 x10^6/uL (3.50-5.40) Hemoglobin 12.5 g/dL (12.0-15.5) Hematocrit 36.6 % (36.0-47.0) Mean Corpuscular Volume 92 fL (79-100) Mean Corpuscular Hemoglobin 31 pg (25-35) Mean Corpuscular Hemoglobin Concent 34 g/dL (31-37) Red Cell Distribution Width 13.3 % (11.5-14.5) Platelet Count 194 x10^3/uL (140-400) Neutrophils (%) (Auto) 54 % (31-73) Lymphocytes (%) (Auto) 36 % (24-48) Monocytes (%) (Auto) 8 % (0-9) Eosinophils (%) (Auto) 2 % (0-3) Basophils (%) (Auto) 1 % (0-3) Neutrophils # (Auto) 2.9 x10^3/uL (1.8-7.7) Lymphocytes # (Auto) 2.0 x10^3/uL (1.0-4.8) Monocytes # (Auto) 0.4 x10^3/uL (0.0-1.1) Eosinophils # (Auto) 0.1 x10^3/uL (0.0-0.7) Basophils # (Auto) 0.0 x10^3/uL (0.0-0.2) Sodium Level 136 mmol/L (136-145) Potassium Level 4.3 mmol/L (3.5-5.1) Chloride Level 104 mmol/L (98-107) Carbon Dioxide Level 25 mmol/L (21-32) Anion Gap 7 (6-14) Blood Urea Nitrogen 16 mg/dL (7-20) Creatinine 1.0 mg/dL (0.6-1.0) Estimated GFR (Cockcroft-Gault) 64.1 Glucose Level 86 mg/dL (70-99) Calcium Level 9.1 mg/dL (8.5-10.1) Microbiology 04/30/20 Urine Culture - Final, Complete Medications Current Medications Sodium Chloride 1,000 ml @ 1,000 mls/hr 1X ONCE IV Last administered on 04/29/20at 22:43; Start 04/29/20 at 22:30; Stop 04/29/20 at 23:29; Status DC Meclizine HCl (Antivert) 25 mg 1X ONCE PO Last administered on 04/29/20at 22:42; Start 04/29/20 at 23:00; Stop 04/29/20 at 23:01; Status DC Iohexol (Omnipaque 300 Mg/ml) 60 ml 1X ONCE IV Last administered on 04/29/20at 23:46; Start 04/29/20 at 23:45; Stop 04/29/20 at 23:46; Status DC Info (CONTRAST GIVEN -- Rx MONITORING) 1 each PRN DAILY PRN MC SEE COMMENTS; Start 04/29/20 at 23:45; Stop 05/01/20 at 23:44 Ondansetron HCl (Zofran) 4 mg PRN Q8HRS PRN IV NAUSEA/VOMITING 1ST CHOICE; Start 04/30/20 at 01:00; Stop 04/30/20 at 08:13; Status DC Ondansetron HCl (Zofran) 4 mg PRN Q4HRS PRN IV NAUSEA/VOMITING 1ST CHOICE Last administered on 04/30/20at 09:04; Start 04/30/20 at 08:15 Sumatriptan Succinate (Imitrex) 100 mg PRN Q2HR PRN PO MIGRAINE HEADACHE Last administered on 04/30/20at 09:09; Start 04/30/20 at 08:15 Levothyroxine Sodium (Synthroid) 88 mcg DAILY06 PO Last administered on 05/01/20at 06:20; Start 05/01/20 at 06:00 Losartan Potassium (Cozaar) 50 mg DAILY PO Last administered on 05/01/20at 09:04; Start 05/01/20 at 09:00 Pantoprazole Sodium (Protonix) 40 mg DAILYAC PO Last administered on 05/01/20at 09:04; Start 05/01/20 at 07:30 Hydrochlorothiazide (Microzide) 12.5 mg DAILY PO ; Start 05/01/20 at 09:00; Stop 04/30/20 at 21:08; Status DC Potassium Chloride (Klor-Con) 40 meq 1X ONCE PO Last administered on 04/30/20at 21:30; Start 04/30/20 at 21:30; Stop 04/30/20 at 21:31; Status DC Active Scripts Active Reported Losartan-Hctz 50-12.5 Mg Tab (Losartan/Hydrochlorothiazide) 1 Each Tablet 1 Tab PO DAILY Omeprazole 40 Mg Capsule.dr 1 Cap PO DAILY Levothyroxine Sodium 88 Mcg Tablet 1 Tab PO DAILY Vitals/I & O Vital Sign - Last 24 Hours 04/30/20 04/30/20 05/01/20 05/01/20 19:00 22:50 03:00 07:44 Temp 98.4 98.8 98.1 98.3 98.4 98.8 98.1 98.3 Pulse 74 68 66 67 Resp 22 22 18 18 B/P (MAP) 139/66 (90) 152/62 (92) 149/73 (98) 145/64 (91) Pulse Ox 95 95 94 95 O2 Delivery Room Air Room Air Room Air Room Air 05/01/20 05/01/20 09:04 11:29 Temp 98.5 98.5 Pulse 67 71 Resp 18 B/P (MAP) 145/64 153/76 (101) Pulse Ox 97 O2 Delivery Room Air Intake and Output 04/30/20 04/30/20 05/01/20 15:00 23:00 07:00 Intake Total 150 ml Output Total 0 ml 0 ml Balance 0 ml 150 ml Justicifation of Admission Dx: Justifications for Admission: Justification of Admission Dx: Yes VIKRAM BLANKENSHIP MD May 01, 2020 12:24
[2020-05-01 15:25] VITALS: BP 148/63
[2020-05-01] MEDS ORDERED: SODIUM CHL/ALOE VERA NASAL GEL 14.1GM TUBE. NS PRN (15:30)
[2020-05-01] MEDS: predniSONE 20 MG TABLET PO SCH (16:25)
[2020-05-01 19:00] VITALS: BP 136/66
[2020-05-01 23:10] VITALS: BP 136/67
[2020-05-02 03:00] VITALS: BP 151/71
[2020-05-02] MEDS: LEVOTHYROXINE 88 MCG TABLET PO SCH (05:56)
[2020-05-02 07:00] VITALS: BP 135/63
[2020-05-02] MEDS: PANTOPRAZOLE 40 MG TABLET.DR. PO SCH (08:34)
[2020-05-02] MEDS: LOSARTAN POTASSIUM 50 MG TABLET. PO SCH (08:35)
[2020-05-02] MEDS: predniSONE 20 MG TABLET PO SCH (08:35)
[2020-05-02] MEDS ORDERED: LOSA-73 PO (08:59)
[2020-05-02] MEDS ORDERED: PRED20TA PO (08:59)
--- NOTE | 2020-05-02 09:49 | PDOC ---
[facility] PROGRESS NOTE Date of Service DOS: DATE: 05/02/20 TIME: 09:45 Chief Complaint Chief Complaint A/P: Nausea and vomiting - likely related to migraine headache, AR ruling out with negative troponin and EKG Hypokalemia - likely GI losses, Replaced Hyponatremia - likely from poor PO intake with above symptoms, Improved with IVF and holding HCTZ Headache - likely migraine given her history Left nystagmus - with rapid saccadic movement, likely vestibular neuronitis, d/w neurology MRI is indicated prior to further care. Vertigo - on maneuvering negative for BPPV, likely related to headache vs vestibular neuronitis or atypical viral infection. Neurology consulted by ED for concern for CVA, CT negative Photophobia - likely migraine symptom, will give IV zofran and attempt PO or IM administration of imitrex HTN - hold HCTZ for electrolyte abnormalities, cont losartan Gait instability - will need assistance on discharge FEN - ADAT PPX - ambulatory FULL CODE Dispo -inpatient overnight, will try to advance diet as tolerated History of Present Illness History of Present Illness Ms Navarrete is a 84-year-old female with PMH hypertension, high cholesterol, vertigo who presents to the ED with a chief complaint of vertigo. Patient states she had sudden onset dizziness 04/29/2020 in the afternoon around 2 PM. She states the hour prior to arrival she developed nausea and vomiting, was unable to hold down any food at home or in the ED. States that her stress ambulated moves her head the symptoms are worse. She denies any weakness in one extremity compared to the other. She states this has occurred several years ago. She denies any history of stroke. Denies any known history of coronary artery disease or peripheral vascular disease. Does note tinnitus. Denies taking aspirin daily. Denies any confusion. Denies falls or head trauma. Denies neck pain. Does note a moderate headache, not the worst of her life, worse on the right side behind her eye. Denies fevers. Denies any acute vision changes, but does note photophobia. No recent sick contacts. Na 133, K 3.4, Cr 1.1, Ca 10.2. EKG appears NSR with rate of 87 bpm. Inverted T waves noted in lead III. No acute ischemic changes appreciated. CT head and CT angiography negative for acute changes or large vessel occlusive disease. She was unable to tolerate PO in ED, admitted for further treatment. 05/01: Nausea and headache improved today. Still with left nystagmus. Dizziness is still present while working with PT. Plan for MRI today, will likely need home health on discharge. Right ear improved hearing today, no further ringing. Her balance improved as well. Vitals/I&O Vitals/I&O: Vital Signs Date Time Temp Pulse Resp B/P (MAP) Pulse Ox O2 Delivery O2 Flow Rate FiO2 05/02/20 08:35 65 135/63 05/02/20 07:00 97.7 18 98 Room Air 97.7 I & O 05/01/20 05/01/20 05/02/20 15:00 23:00 07:00 Intake Total 275 ml 300 ml Output Total 3 ml 0 ml Balance 272 ml 300 ml Physical Exam General: Alert, Oriented X3, Cooperative, moderate distress Lungs: Clear Abdomen: Normal bowel sounds, Soft, No tenderness, No hepatosplenomegaly, No masses Extremities: No clubbing, No cyanosis, No edema, Normal pulses, No tenderness/swelling Skin: No rashes, No breakdown, No significant lesion Assessment and Plan Assessmemt and Plan Problems Medical Problems: (1) Non fatigable positional nystagmus Status: Acute Comment Review of Relevant I have reviewed the following items bam (where applicable) has been applied. Medications: Current Medications Medications (Trade) Dose Ordered Sig/Nolan Route PRN Reason Start Time Stop Time Status Last Admin Dose Admin Prednisone (Prednisone) 20 mg DAILY PO 05/01/20 16:00 05/05/20 09:01 05/02/20 08:35 Justifications for Admission Other Justification JAYDN GRECO MD May 02, 2020 09:49
--- NOTE | 2020-05-02 09:50 | PDOC3 ---
Discharge Summary Visit Information Date of Admission: Apr 30, 2020 Date of Discharge: May 02, 2020 Admitting Diagnosis: Left nystagmus, dizziness Final Diagnosis Problems Medical Problems: (1) Non fatigable positional nystagmus Status: Acute Brief Hospital Course Allergies Allergies Coded Allergies Type Severity Reaction Last Updated Verified simvastatin Allergy Intermediate 02/20/18 Yes Vital Signs Vital Signs Date Time Temp Pulse Resp B/P (MAP) Pulse Ox O2 Delivery O2 Flow Rate FiO2 05/02/20 08:35 65 135/63 05/02/20 07:00 97.7 18 98 Room Air 97.7 Lab Results Laboratory Tests Test 05/01/20 04:32 White Blood Count 5.5 x10^3/uL (4.0-11.0) Red Blood Count 3.97 x10^6/uL (3.50-5.40) Hemoglobin 12.5 g/dL (12.0-15.5) Hematocrit 36.6 % (36.0-47.0) Mean Corpuscular Volume 92 fL (79-100) Mean Corpuscular Hemoglobin 31 pg (25-35) Mean Corpuscular Hemoglobin Concent 34 g/dL (31-37) Red Cell Distribution Width 13.3 % (11.5-14.5) Platelet Count 194 x10^3/uL (140-400) Neutrophils (%) (Auto) 54 % (31-73) Lymphocytes (%) (Auto) 36 % (24-48) Monocytes (%) (Auto) 8 % (0-9) Eosinophils (%) (Auto) 2 % (0-3) Basophils (%) (Auto) 1 % (0-3) Neutrophils # (Auto) 2.9 x10^3/uL (1.8-7.7) Lymphocytes # (Auto) 2.0 x10^3/uL (1.0-4.8) Monocytes # (Auto) 0.4 x10^3/uL (0.0-1.1) Eosinophils # (Auto) 0.1 x10^3/uL (0.0-0.7) Basophils # (Auto) 0.0 x10^3/uL (0.0-0.2) Sodium Level 136 mmol/L (136-145) Potassium Level 4.3 mmol/L (3.5-5.1) Chloride Level 104 mmol/L (98-107) Carbon Dioxide Level 25 mmol/L (21-32) Anion Gap 7 (6-14) Blood Urea Nitrogen 16 mg/dL (7-20) Creatinine 1.0 mg/dL (0.6-1.0) Estimated GFR (Cockcroft-Gault) 64.1 Glucose Level 86 mg/dL (70-99) Calcium Level 9.1 mg/dL (8.5-10.1) Brief Hospital Course Ms Navarrete is a 84-year-old female with PMH hypertension, high cholesterol, vertigo who presents to the ED with a chief complaint of vertigo. Patient states she had sudden onset dizziness 04/29/2020 in the afternoon around 2 PM. She states the hour prior to arrival she developed nausea and vomiting, was unable to hold down any food at home or in the ED. States that her stress ambulated moves her head the symptoms are worse. She denies any weakness in one extremity compared to the other. She states this has occurred several years ago. She denies any history of stroke. Denies any known history of coronary artery disease or peripheral vascular disease. Does note tinnitus. Denies taking aspirin daily. Denies any confusion. Denies falls or head trauma. Denies neck pain. Does n ote a moderate headache, not the worst of her life, worse on the right side behind her eye. Denies fevers. Denies any acute vision changes, but does note photophobia. No recent sick contacts. Na 133, K 3.4, Cr 1.1, Ca 10.2. EKG appears NSR with rate of 87 bpm. Inverted T waves noted in lead III. No acute ischemic changes appreciated. CT head and CT angiography negative for acute changes or large vessel occlusive disease. She was unable to tolerate PO in ED, admitted for further treatment. 05/01: Nausea and headache improved today. Still with left nystagmus. Dizziness is still present while working with PT. MRI Brain: There is mild motion. There is no convincing evidence of recent infarct or cytotoxic edema. Ventricular size is proportionate to the sulcal spaces. There is [id number] supratentorial atrophy somewhat greater of the parietal lobes.There is no significant midline shift, intraaxial mass effect, or focal abnormal extra-axial fluid collection. There is scattered [id number] T2 and FLAIR hyperintense signal abnormality of the supratentorial parenchyma bilaterally greatest of the periatrial white matter. There is preservation of the major intracranial flow-voids at the skull base. The cerebellar tonsils are normal in location. There is no significant abnormality of the pineal gland or pituitary gland. There is mild to moderate ethmoid air cell mucosal thickening, very minimally of the frontal sinus and left maxillary sinus. There is minimal thickening of the mastoid air cells bilaterally.There is preserved marrow signal of the clivus. There is C3-4 degenerative disc disease. Impression: 1. There is no convincing evidence of recent infarct or intracranial mass effect. There is [id number] supratentorial atrophy somewhat greater of the parietal lobes. Scattered mild to moderate T2 and FLAIR hyperintense signal supratentorial parenchyma is nonspecific although more commonly due to chronic microvascular ischemic disease patient's age. Right ear improved hearing today, no further ringing. Her balance improved as well. D/w neurology ok for d/c home with self care. Consults: Neurology Problem list: Nausea and vomiting - likely related to migraine headache, OH ruling out with negative troponin and EKG Hypokalemia - likely GI losses, Replaced Hyponatremia - likely from poor PO intake with above symptoms, Improved with IVF and holding HCTZ Headache - likely migraine given her history Left nystagmus - with rapid saccadic movement, likely vestibular neuronitis, d/w neurology MRI is indicated prior to further care. Vertigo - on maneuvering negative for BPPV, likely related to headache vs vestibular neuronitis or atypical viral infection. Neurology consulted by ED for concern for CVA, CT negative Photophobia - likely migraine symptom, will give IV zofran and attempt PO or IM administration of imitrex HTN - hold HCTZ for electrolyte abnormalities, cont losartan Gait instability - will need assistance on discharge Greater than 30 minutes spent on d/c home Discharge Information Condition at Discharge: Improved Follow Up: Weeks (1) Disposition/Orders: D/C to Home Scheduled Levothyroxine Sodium (Levothyroxine Sodium) 88 Mcg Tablet, 1 TAB PO DAILY, #30 Ref 5 (Reported) Entered as Reported by: Bennett Horton on 02/20/18 1151 Last Action: Continued on 04/30/20 2018 by JORDEN HUBER Losartan Potassium (Cozaar ) 50 Mg Tablet, 50 MG PO DAILY for HTN for 30 Days, #30 Prescribed by: JADYN GRECO MD on 05/02/20 0859 Losartan/Hydrochlorothiazide (Losartan-Hctz 50-12.5 Mg Tab) 1 Each Tablet, 1 TAB PO DAILY, #30 Ref 5 (Reported) Entered as Reported by: Bennett Horton on 02/20/18 1151 Last Action: Converted on 04/30/202017 by JORDEN HUBER Omeprazole (Omeprazole) 40 Mg Capsule.dr, 1 CAP PO DAILY, #30 Ref 3 (Reported) Entered as Reported by: Bennett Horton on 02/20/18 1151 Last Action: Converted on 04/30/202017 by JORDEN HUBER Prednisone (Prednisone) 20 Mg Tablet, 20 MG PO DAILY for Right middle ear effusion for 4 Days, #4 Prescribed by: JADYN GRECO MD on 05/02/20 0859 Justicifation of Admission Dx: Justifications for Admission: Justification of Admission Dx: Yes JADYN GRECO MD May 02, 2020 09:50
--- NOTE | 2020-05-02 10:49 | NUR ---
SW following. Discussed with RN, discharge order for home with self care. RN advised no SW needs.
[2020-05-02 11:00] VITALS: BP 139/67
--- NOTE | 2020-05-02 11:30 | NUR ---
Discharge Note: PT DISCHARGED HOME WITH SELF CARE. PT LEFT FACILITY VIA PRIVATE VEHICLE WITH FRIEND AT 1130. PT STABLE AND ALERT UPON DISCHARGE. PT PIV REMOVED FROM L AC WITHOUT COMPLICATIONS, BANDAGE APPLIED. PT EDUCATED ABOUT DISCHARGE INSTRUCTIONS, DISCHARGE MEDICATIONS, AND FOLLOW-UP CARE. PT VOICED NO CONCERNS AT THIS TIME. PT LEFT WITH ALL PERSONAL BELONGINGS. HARDEEP CAPELLAN Discharge instructions and discharge home medications reviewed with Patient and a copy given. All questions have been answered and understanding verbalized.
--- NOTE | 2020-05-02 11:37 | PDOC ---
PROGRESS NOTES Date of Service DATE: 05/02/20 TIME: 11:35 Assessment Problems Medical Problems: (1) Non fatigable positional nystagmus Status: Acute History of migraine headaches, toxic headache, possible viral infection Vertigo, resolved, may have had some vestibular neuronitis. still off balance walking. Negative brain MRI Plan Supportive care, IV fluids, ondansetron, meclizine, and she also received a dose of sumatriptan Agree with physical therapy, use home exercises, does not need additional physical therapy Return to see me if no better in a few weeks Subjective Feels better, wants to go home Objective Vital Signs Date Time Temp Pulse Resp B/P (MAP) Pulse Ox O2 Delivery O2 Flow Rate FiO2 05/02/20 11:00 97.8 73 18 139/67 (91) 97 Room Air 97.8 Intake and Output 05/02/20 07:00 Intake Total 575 ml Output Total 3 ml Balance 572 ml Intake Oral 575 ml Output Urine Total 2 ml Stool Total 1 ml # Voids 3 PHYSICAL EXAM Alert. Oriented to time, place and person. PERRL. EOMI. CN: no focal findings. Muscle tone: normal. Muscle strength: 5/5 DTR: 2+ Plantar reflex: flexor Gait: Unsteady Sensory exam: no abnormal findings. No cerebellar signs elicited. Review of Relevant I have reviewed the following items bam (where applicable) has been applied. Labs Laboratory Tests Test 05/01/20 04:32 White Blood Count 5.5 x10^3/uL (4.0-11.0) Red Blood Count 3.97 x10^6/uL (3.50-5.40) Hemoglobin 12.5 g/dL (12.0-15.5) Hematocrit 36.6 % (36.0-47.0) Mean Corpuscular Volume 92 fL (79-100) Mean Corpuscular Hemoglobin 31 pg (25-35) Mean Corpuscular Hemoglobin Concent 34 g/dL (31-37) Red Cell Distribution Width 13.3 % (11.5-14.5) Platelet Count 194 x10^3/uL (140-400) Neutrophils (%) (Auto) 54 % (31-73) Lymphocytes (%) (Auto) 36 % (24-48) Monocytes (%) (Auto) 8 % (0-9) Eosinophils (%) (Auto) 2 % (0-3) Basophils (%) (Auto) 1 % (0-3) Neutrophils # (Auto) 2.9 x10^3/uL (1.8-7.7) Lymphocytes # (Auto) 2.0 x10^3/uL (1.0-4.8) Monocytes # (Auto) 0.4 x10^3/uL (0.0-1.1) Eosinophils # (Auto) 0.1 x10^3/uL (0.0-0.7) Basophils # (Auto) 0.0 x10^3/uL (0.0-0.2) Sodium Level 136 mmol/L (136-145) Potassium Level 4.3 mmol/L (3.5-5.1) Chloride Level 104 mmol/L (98-107) Carbon Dioxide Level 25 mmol/L (21-32) Anion Gap 7 (6-14) Blood Urea Nitrogen 16 mg/dL (7-20) Creatinine 1.0 mg/dL (0.6-1.0) Estimated GFR (Cockcroft-Gault) 64.1 Glucose Level 86 mg/dL (70-99) Calcium Level 9.1 mg/dL (8.5-10.1) Microbiology 04/30/20 Urine Culture - Final, Complete Medications Current Medications Sodium Chloride 1,000 ml @ 1,000 mls/hr 1X ONCE IV Last administered on 04/29/20at 22:43; Start 04/29/20 at 22:30; Stop 04/29/20 at 23:29; Status DC Meclizine HCl (Antivert) 25 mg 1X ONCE PO Last administered on 04/29/20at 22:42; Start 04/29/20 at 23:00; Stop 04/29/20 at 23:01; Status DC Iohexol (Omnipaque 300 Mg/ml) 60 ml 1X ONCE IV Last administered on 04/29/20at 23:46; Start 04/29/20 at 23:45; Stop 04/29/20 at 23:46; Status DC Info (CONTRAST GIVEN -- Rx MONITORING) 1 each PRN DAILY PRN MC SEE COMMENTS; Start 04/29/20 at 23:45; Stop 05/01/20 at 23:44; Status DC Ondansetron HCl (Zofran) 4 mg PRN Q8HRS PRN IV NAUSEA/VOMITING 1ST CHOICE; Start 04/30/20 at 01:00; Stop 04/30/20 at 08:13; Status DC Ondansetron HCl (Zofran) 4 mg PRN Q4HRS PRN IV NAUSEA/VOMITING 1ST CHOICE Last administered on 04/30/20at 09:04; Start 04/30/20 at 08:15; Stop 05/02/20 at 11:34; Status DC Sumatriptan Succinate (Imitrex) 100 mg PRN Q2HR PRN PO MIGRAINE HEADACHE Last administered on 04/30/20at 09:09; Start 04/30/20 at 08:15; Stop 05/02/20 at 11:34; Status DC Levothyroxine Sodium (Synthroid) 88 mcg DAILY06 PO Last administered on 05/02/20at 05:56; Start 05/01/20 at 06:00; Stop 05/02/20 at 11:34; Status DC Losartan Potassium (Cozaar) 50 mg DAILY PO Last administered on 05/02/20at 08:35; Start 05/01/20 at 09:00; Stop 05/02/20 at 11:34; Status DC Pantoprazole Sodium (Protonix) 40 mg DAILYAC PO Last administered on 05/02/20at 08:34; Start 05/01/20 at 07:30; Stop 05/02/20 at 11:34; Status DC Hydrochlorothiazide (Microzide) 12.5 mg DAILY PO ; Start 05/01/20 at 09:00; Stop 04/30/20 at 21:08; Status DC Potassium Chloride (Klor-Con) 40 meq 1X ONCE PO Last administered on 04/30/20at 21:30; Start 04/30/20 at 21:30; Stop 04/30/20 at 21:31; Status DC Prednisone (Prednisone) 20 mg DAILY PO Last administered on 05/02/20at 08:35; Start 05/01/20 at 16:00; Stop 05/02/20 at 11:34; Status DC Sodium Chloride ([place] Saline Nasal) 1 lynne PRN DAILY PRN NS NASAL CONGESTION; Start 05/01/20 at 15:30; Stop 05/02/20 at 11:34; Status DC Active Scripts Active Cozaar (Losartan Potassium) 50 Mg Tablet 50 Mg PO DAILY 30 Days Prednisone 20 Mg Tablet 20 Mg PO DAILY 4 Days Reported Omeprazole 40 Mg Capsule.dr 1 Cap PO DAILY Levothyroxine Sodium 88 Mcg Tablet 1 Tab PO DAILY Vitals/I & O Vital Sign - Last 24 Hours 05/01/20 05/01/20 05/01/20 05/02/20 15:25 19:00 23:10 03:00 Temp 98.5 98.6 98.6 98.5 98.5 98.6 98.6 98.5 Pulse 71 86 71 66 Resp 18 22 22 20 B/P (MAP) 148/63 (91) 136/66 (89) 136/67 (90) 151/71 (97) Pulse Ox 98 96 94 97 O2 Delivery Room Air Room Air Room Air Room Air 05/02/20 05/02/20 05/02/20 07:00 08:35 11:00 Temp 97.7 97.8 97.7 97.8 Pulse 65 65 73 Resp 18 18 B/P (MAP) 135/63 (87) 135/63 139/67 (91) Pulse Ox 98 97 O2 Delivery Room Air Room Air Intake and Output 05/01/20 05/01/20 05/02/20 15:00 23:00 07:00 Intake Total 275 ml 300 ml Output Total 3 ml 0 ml Balance 272 ml 300 ml Images MRI Brain without contrast History:Persistent vertigo Technique: Multiplanar, multisequential noncontrast MR imaging was performed of the brain. Comparison: None Findings: There is mild motion. There is no convincing evidence of recent infarct or cytotoxic edema. Ventricular size is proportionate to the sulcal spaces. There is [id number] supratentorial atrophy somewhat greater of the parietal lobes.There is no significant midline shift, intraaxial mass effect, or focal abnormal extra-axial fluid collection. There is scattered [id number] T2 and FLAIR hyperintense signal abnormality of the supratentorial parenchyma bilaterally greatest of the periatrial white matter. There is preservation of the major intracranial flow-voids at the skull base. The cerebellar tonsils are normal in location. There is no significant abnormality of the pineal gland or pituitary gland. There is mild to moderate ethmoid air cell mucosal thickening, very minimally of the frontal sinus and left maxillary sinus. There is minimal thickening of the mastoid air cells bilaterally.There is preserved marrow signal of the clivus. There is C3-4 degenerative disc disease. Impression: 1. There is no convincing evidence of recent infarct or intracranial mass effect. There is [id number] supratentorial atrophy somewhat greater of the parietal lobes. Scattered mild to moderate T2 and FLAIR hyperintense signal supratentorial parenchyma is nonspecific although more commonly due to chronic microvascular ischemic disease patient's age. Justicifation of Admission Dx: Justifications for Admission: Justification of Admission Dx: Yes VIKRAM BLANKENSHIP MD May 02, 2020 11:36
== END 2020-05-02 11:30 | disposition home or self-care (01) | DRG 57 ==
LOC: ER 21:56 → ED HOLD 04-30 00:45 → 5 NORTH 04-30 15:36
PROVIDERS: ADMIT Internal Medicine; ATTEND Internal Medicine
DX: A81.9 Atypical virus infection of central nervous system, unspecified (principal); E87.1 Hypo-osmolality and hyponatremia; H81.20 Vestibular neuronitis, unspecified ear; G43.909 Migraine, unspecified, not intractable, without status migrainosus; H81.4 Vertigo of central origin; E03.9 Hypothyroidism, unspecified; E78.00 Pure hypercholesterolemia, unspecified; H55.00 Unspecified nystagmus; H93.11 Tinnitus, right ear; I10 Essential (primary) hypertension; M50.31 Other cervical disc degeneration, high cervical region; Z82.3 Family history of stroke; Z82.49 Family history of ischemic heart disease and other diseases of the circulatory system; Z90.710 Acquired absence of both cervix and uterus; E87.6 Hypokalemia; Z90.49 Acquired absence of other specified parts of digestive tract; Z60.2 Problems related to living alone
CPT/HCPCS: 36415; 70450; 70496; 70498; 70551; 80048; 80053; 80061; 80329; 81001; 82962; 83036; 83690; 83735; 84484; 85007; 85025; 87086; 93005; 96360; 99285; J2405; J7030; J7512; Q9967; 97110-GP; 97116-GP; G0378; G0480; J8597